=== PATIENT | female | born 1940 | race Caucasian/White ===

== ENCOUNTER → 2016-10-12 | Outpatient (CLI) | payer OTHER ==
[~2016-10-12] MED LIST: ALPR-411 PO; BUDE180I INH; CALCTAB5 PO; CETI10TA10 PO; DILT-115 PO; DILT-119 PO; FURO-85 PO; IPRASOL4 INH; LISI5TAB; MAGN400T5 PO; MELO7.5T5 PO; MISCTAB30; MONT1TAB3 PO; MULTTAB58 PO; ONDA8TAB6 PO; OXGN; PANT40TA PO; POTA10TA PO; PROC1TAB5 PO; RIVA1TAB4 PO
--- NOTE | 2016-10-12 13:13 | DIAGNOSTIC IMAGING REPORT ---
CHEST 2 VIEWS ROUTINE CLINICAL HISTORY: C34.90 Adenocarcinoma of lung, stage 4do at time of next appt in COMPARISON STUDY: 09/10/2015 FINDINGS: Improved left perihilar masslike and/or infiltrative changes. Maximum dimension is diminished from 7 cm to 3.5 cm. Central catheter remains in superior vena cava. Subtle increased density left base is unchanged in the prior study. IMPRESSION: Improved exam with the left perihilar/hilar density diminished from 7 cm to 3.5 cm maximum dimension Electronically signed by: Shahbaz Crouch M.D. 10/12/2016 1:11 PM Dictated Date/Time: 10/12/2016 1:09 PM
== END | disposition home or self-care (01) ==
LOC: C.RAD1850 12:45
PROVIDERS: ATTEND Internal Medicine Pulmonary Disease
DX: C34.90 Malignant neoplasm of unspecified part of unspecified bronchus or lung (principal)

== ENCOUNTER → 2017-03-02 | Outpatient (CLI) | payer OTHER ==
[2017-03-02 12:16] LABS: BASO % 0.5 %; BASO ABS # 0.05 K/uL (0-0.2); COMPLETE YES; EOS % 2.4 %; HEMATOCRIT 39.6 % (37-47); IG% 0.3 %; LYMPH % 19.1 %; LYMPH ABS # 1.98 K/uL (1.2-3.4); MEAN CELL VOLUME 88.4 fL (80-100); MEAN CORPUSCULAR HEMOGLOBIN 28.8 pg (25-34); MEAN CORPUSCULAR HGB CONC 32.6 g/dl (32-36); MEAN PLATELET VOLUME 9.9 fL (7.4-10.4); MONO % 10.3 %; NEUT % 67.4 %; PLATELET COUNT 259 K/uL (130-400); RED BLOOD COUNT 4.48 M/uL (4.2-5.4); WHITE BLOOD COUNT 10.34 K/uL (4.8-10.8)
[2017-03-02 12:35] LABS: ALT/SGPT 27 U/L (12-78); AST/SGOT 19 U/L (15-37); BLOOD UREA NITROGEN 10 mg/dl (7-18); BUN/CREATININE RATIO 16.8 (10-20); CALCIUM 9.4 mg/dl (8.5-10.1); CARBON DIOXIDE 30 mmol/L (21-32); CHLORIDE 106 mmol/L (98-107); CREATININE 0.59 mg/dl (0.60-1.20); GLUCOSE 71 mg/dl (70-99); POTASSIUM 3.6 mmol/L (3.5-5.1); SODIUM 141 mmol/L (136-145)
[2017-03-02 12:37] LABS: ALKALINE PHOSPHATASE 86 U/L (45-117)
--- NOTE | 2017-03-02 14:50 | DIAGNOSTIC IMAGING REPORT ---
(CHEST) THORAX WITH CLINICAL HISTORY: 76 years-old Female presenting with malignant neoplasm of the left upper lobe bronchus or lung. TECHNIQUE: Multidetector CT imaging of the chest was performed after the administration of intravenous contrast. IV contrast: 160 mL of Optiray 320. COMPARISON: 06/28/2016. CT DOSE: The estimated cumulative dose is 250.52 mGy.cm. 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 On soft tissue windows, left lower pole thyroid nodule now measures 13 mm, previously 11 mm. A smaller right thyroid lobe nodule is also noted. No axillary, supraclavicular, or mediastinal lymphadenopathy. Fullness at the left hilum secondary to left perihilar mass. Atherosclerosis of the aortic arch and origin of the left subclavian artery. Main pulmonary artery and right and left pulmonary arteries enlarged. The main pulmonary artery measures 3.2 cm in transverse dimension. Multichamber enlargement of the heart. Aortic arch and mitral annular calcification. Coronary artery calcification. Interval resolution of left pleural effusion. No pericardial effusion. Upper abdomen demonstrates well-defined lesion in the left hepatic lobe, indeterminate but likely hepatic cyst or hamartoma similar to prior exam. Cholecystectomy clips. Vague apparent hypoattenuation in the inferior aspect of the caudate, indeterminate (series 2 image 53). On lung windows, left paramediastinal consolidation in the upper lung, unchanged in distribution and likely postradiation change. Fullness at the left hilum is essentially unchanged from prior, consistent with known left perihilar mass. Subtle mosaic attenuation may suggest small airways disease. Scattered bilateral punctate nodules as on prior exam. Prominent subpleural 4 mm nodule in the right upper lobe (series 4 image 117). Previously this lesion was less solid and slightly smaller measuring only 3 mm. Calcified granuloma noted at the right apex. Airways patent. On bone windows, stable sclerotic lesion in an upper thoracic vertebral body. Multilevel degenerative changes of the thoracic spine. Superior endplate deformity of L1 partially visualized. IMPRESSION: 1. No significant change in appearance of the left perihilar consolidation/mass. Persistent left paramediastinal consolidative changes in keeping with postradiation fibrosis. 2. Interval resolution of left pleural effusion. 3. Scattered subcentimeter pulmonary nodules measuring up to 4 mm, the largest slightly increased in size from prior. 4. Apparent indeterminate hypoattenuation in the caudate. This is increased in size from prior CT of the abdomen and pelvis an concerning for disease progression. Electronically signed by: Neo John M.D. 03/02/2017 2:49 PM Dictated Date/Time: 03/02/2017 12:59 PM
== END | disposition home or self-care (01) ==
LOC: C.CTS 10:48
PROVIDERS: ATTEND Internal Medicine Hematology & Oncology
DX: C34.12 Malignant neoplasm of upper lobe, left bronchus or lung (principal); R91.8 Other nonspecific abnormal finding of lung field

== ENCOUNTER → 2017-03-03 | Outpatient (CLI) | payer OTHER ==
[2016-03-02 13:53] VITALS: BP 104/53; PULSE 72
[2017-03-03 13:04] VITALS: BP 107/68; PULSE 84; TEMP 36.8; O2SAT 96
--- NOTE | 2017-03-03 14:02 | Radiation Oncology Follow-Up ---
Radiation Oncology Follow-Up Date of Visit Mar 03, 2017. Reason For Visit Annual follow-up Radiation Completion Date Chest 07/22/15 Diagnosis (1) Lung cancer Status: Acute Onset Date: 04/10/2015 Location: metastasis to the right iliac bone Histology Subtype: adenocarcinoma Stage: IV Permanent Comment: DIAGNOSIS: Lung, IBETH, poorly differentiated adenocarcinoma, [id number] TREATMENT: Radiation therapy to the right iliac bone completed 05/20/2015 received 2500 cGy in 5 fractions at 500 cGy per fraction Status post completion of radiation therapy to the chest 07/22/2015 received 4000 cGy Last Edited By: Audrey Becker on Jul 29, 2015 13:13 History of Present Illness Ms. Rosario is a 76year old female with a long-standing history of asthma who recently underwent a routine chest x-ray on which revealed a 6.4 cm left perihilar mass concerning for malignancy. A CT Thorax was completed on 03/28/2015 but those records are not available for my review at the time of this consultation. The patient was then seen by Dr. Rosario who has followed the patient for several years and recommended a bronchoscopy for pathologic diagnosis. The patient underwent a bronchoscopy on 04/10/2015 which revealed "complete obstruction of left upper lobe bronchus with a friable endobronchial mass. Onsite cytology confirming left upper lobe mass is a non- small cell carcinoma. Metastatic carcinoma noted in station 7 lymph nodes." Biopsy of the left upper lobe mass revealed poorly differentiated adenocarcinoma. The biopsy of the station 7 lymph node was also positive as well. The R4 lymph node was negative for malignancy. Bronchial washings were also positive for lung cancer. The patient then had a PET/CT which was completed on 04/21/2015 which revealed: "1. Marked FDG avidity of the left upper lobe mass with associated occlusion of the left upper lobe bronchus. Mild postobstructive airspace opacity. This is consistent with the provided history of lung carcinoma. 2. Enlarged FDG avid prevascular, left supraclavicular and subcarinal lymph nodes consistent with melisa spread of disease. 3. Two FDG avid hepatic lesions suspicious for hepatic metastases. In addition, there is an FDG avid splenic lesion which is suspicious for splenic metastasis. 4. FDG avid lesion within the posterior medial aspect the right iliac bone highly suggestive of a skeletal metastasis." The patient was seen by Dr. Mcadams who recommended consideration of systemic therapy for her stage IV lung cancer. Given her discomfort from her right pelvic metastasis, Dr. Mcadams recommended consideration of palliative radiation therapy. She now presents for follow up evaluation. Overall, today she is doing okay. She does have some pain in her right hip region. She states that most of her discomfort is experienced when she lies down and can no longer sleep as comfortably as she did before. Otherwise, she states she has no other significant complaints at the moment. She received radiation therapy to the pelvis from 05/14/2015 to 05/20/2015. She had 5 fractions of therapy. The total dose of treatment was 2500 [address] She [address] a [address] scan of the chest on 06/05/2015. She had increased shortness of breath. She was found to have multiple pulmonary emboli. There was dilated central pulmonary arteries suggestive of pulmonary arterial hypertension. This was treated she's been followed closely by Dr. Mcadams. She has been receiving weekly Taxol carboplatin. She is tolerating this well. Dr. Mcadams has recommended the addition of radiation therapy with her chemotherapy for better respon Interim History She is continued to have close follow-up by medical oncology. She has now followed by Dr. Ruiz. She was having some problems with difficulty swallowing in June of last year. She had a barium swallow. She stated after having the study the difficulty resolved. She denies any change in her respiratory status. Her appetite is good she has gained weight. She denies any pain in the area of the right iliac bone. She had a chest x-ray in September. This showed improved exam with the left perihilar/hilar density diminished from 7 cm to 3.5 cm. She recently had a recheck CT of the chest yesterday. She'll be seeing Dr. Ruiz on the to further review this study. Allergies Coded Allergies: Amoxicillin (Verified Allergy, Intermediate, HIVES,RASH?, 10/14/15) Doxycycline (Verified Allergy, Intermediate, hives, 11/10/15) Penicillins (Verified Allergy, Intermediate, Hives / Rash, 10/14/15) Albuterol (Verified Allergy, Unknown, PT NOT AWARE OF ALLERGY -ON DR ROSARIO CHART, 10/14/15) Budesonide (Verified Allergy, Unknown, CHILLS,MUSCLE SPASMS, 10/14/15) Formoterol (Verified Allergy, Unknown, CHILLS,MUSCLE SPASMS, 10/14/15) Ipratropium (Verified Allergy, Unknown, PT NOT AWARE OF ALLERGY -ON DR ROSARIO CHART, 10/14/15) Sulfa Antibiotics (Verified Allergy, Unknown, UNKNOWN, 10/14/15) Tiotropium (Verified Allergy, Unknown, CHILLS,MUSCLE SPASMS, 10/14/15) Adhesives (Verified Adverse Reaction, Intermediate, TAPE-REDNESS, RASH, BURNT SKIN, 11/10/15) Statins (Verified Adverse Reaction, Intermediate, muscles tighten, 10/14/15 ) Clarithromycin (Verified Adverse Reaction, Mild, nausea, 10/14/15) Home Medications Scheduled Budesonide (Inhalation) (Pulmicort Flexhaler), 2 PUFFS INH BID Cetirizine Hcl (Zyrtec), 10 MG PO QPM Diltiazem Hcl Ext Rel (Tiazac), 240 MG PO DAILY Home O2 Therapy (Oxygen), 2 LITERS NA DAILY Misc Natural Products (Osteo Bi-Flex Joint Shiel), BID Montelukast Sodium (Singulair), 10 MG PO QPM Multiple Vitamin (Multivitamin), 1 TAB PO QPM Pantoprazole (Protonix), 40 MG PO QAM Rivaroxaban (Xarelto), 20 MG PO DAILY Scheduled PRN Alprazolam (Xanax), 1 TAB PO DAILY PRN for Anxiety Ipratropium-Albuterol (Duoneb), 1 TREATMENT INH Q4H PRN for PRN Meloxicam (Mobic), 15 MG PO DAILY PRN for PRN Ondansetron Hcl (Zofran), 8 MG PO TID PRN for Nausea Prochlorperazine Maleate (Compazine), 10 MG PO Q4H PRN for nausea Review of Systems Gastrointestinal: Symptoms: Nausea GI Comments: Waves of nausea;Takes zofran PRN; Oral: Symptoms: No Problems Other Oral Symptoms: Denies any dysphagia; Respiratory: Symptoms: Productive Cough Respiratory Comments: Hoarse voice Sputum Character: Clear sputum when cough productive;Makes her gag at times; Other Respiratory: Oxygen at bedtime Urinary: Symptoms: WNL Comments: Some urinary incontinence during nights; Skin: Symptoms: No Problems Physical Exam Vital Signs Date Time Temp Pulse Resp B/P (MAP) Pulse Ox O2 Delivery O2 Flow Rate FiO2 03/03/17 13:04 36.8 84 24 107/68 96 Pain: Pain Location: None Patient Pain Scale: 0 - 10 Initial Pain Intensity: 0.0 Fatigue: None General Appearance: no apparent distress Eyes: normal inspection, EOMI ENT: normal ENT inspection, hearing grossly normal Neck: no adenopathy, thyroid normal Respiratory/Chest: lungs clear, no respiratory distress, no accessory muscle use, + decreased breath sounds Cardiovascular: regular rate, rhythm, no gallop, no murmur Extremities: no pedal edema Neurologic/Psychiatric: no motor/sensory deficits, alert, normal mood/affect Skin: warm/dry Laboratory Studies Test 03/02/17 10:58 White Blood Count 10.34 K/uL (4.8-10.8) Red Blood Count 4.48 M/uL (4.2-5.4) Hemoglobin 12.9 g/dL (12.0-16.0) Hematocrit 39.6 % (37-47) Mean Corpuscular Volume 88.4 fL (80-100) Mean Corpuscular Hemoglobin 28.8 pg (25-34) Mean Corpuscular Hemoglobin Concent 32.6 g/dl (32-36) Platelet Count 259 K/uL (130-400) Mean Platelet Volume 9.9 fL (7.4-10.4) Neutrophils (%) (Auto) 67.4 % Lymphocytes (%) (Auto) 19.1 % Monocytes (%) (Auto) 10.3 % Eosinophils (%) (Auto) 2.4 % Basophils (%) (Auto) 0.5 % Neutrophils # (Auto) 6.96 K/uL (1.4-6.5) Lymphocytes # (Auto) 1.98 K/uL (1.2-3.4) Monocytes # (Auto) 1.07 K/uL (0.11-0.59) Eosinophils # (Auto) 0.25 K/uL (0-0.5) Basophils # (Auto) 0.05 K/uL (0-0.2) RDW Standard Deviation 44.9 fL (36.4-46.3) RDW Coefficient of Variation 13.9 % (11.5-14.5) Immature Granulocyte % (Auto) 0.3 % Immature Granulocyte # (Auto) 0.03 K/uL (0.00-0.02) Sodium Level 141 mmol/L (136-145) Potassium Level 3.6 mmol/L (3.5-5.1) Chloride Level 106 mmol/L (98-107) Carbon Dioxide Level 30 mmol/L (21-32) Anion Gap 5.0 mmol/L (3-11) Blood Urea Nitrogen 10 mg/dl (7-18) Creatinine 0.59 mg/dl (0.60-1.20) Estimated GFR () 101.7 Estimated GFR (Non- 87.8 BUN/Creatinine Ratio 16.8 (10-20) Random Glucose 71 mg/dl (70-99) Calcium Level 9.4 mg/dl (8.5-10.1) Total Bilirubin 0.4 mg/dl (0.2-1) Aspartate Amino Transferase (AST) 19 U/L (15-37) Alanine Aminotransferase (ALT) 27 U/L (12-78) Alkaline Phosphatase 86 U/L (45-117) Lactate Dehydrogenase 210 U/L (84-246) Total Protein 6.6 gm/dl (6.4-8.2) Albumin 3.3 gm/dl (3.4-5.0) Globulin 3.3 gm/dl (2.5-4.0) Albumin/Globulin Ratio 1.0 (0.9-2) Additional Studies Patient: LAXMI ROSARIO Address1: [address] [place] [address] Rec: [id number] Address2: Acct ID: [id number] [facility] Zip: [place] [address] Date: 1940 Sex: F Room/Bed: Ref Phy: Sury Abad M.D. SC: C.CTS Att Phy: Karlos Ruiz D.O. Report #: [id number] Roxane Phy: Sury Abad M.D. Test: CX Admit Phy: Junior Legal Secretary: QUOC Interpreting Phy: Neo John MD Diagnosis: LUNG CA Ordering Phy: Karlos Ruiz D.O. Service Date: 03/02/17 Admit Date: 03/02/17 MNE: [id number] CONF: DICTATED BY: Neo John MD]] CC: Karlos Ruiz D.O., Mary E., M.D. [facility]: [~ rep ct add3]] (CHEST) THORAX WITH CLINICAL HISTORY: 76 years-old Female presenting with malignant neoplasm of the left upper lobe bronchus or lung. TECHNIQUE: Multidetector CT imaging of the chest was performed after the administration of intravenous contrast. IV contrast: 160 mL of Optiray 320. COMPARISON: 06/28/2016. CT DOSE: The estimated cumulative dose is 250.52 mGy.cm. 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 On soft tissue windows, left lower pole thyroid nodule now measures 13 mm, previously 11 mm. A smaller right thyroid lobe nodule is also noted. No axillary, supraclavicular, or mediastinal lymphadenopathy. Fullness at the left hilum secondary to left perihilar mass. Atherosclerosis of the aortic arch and origin of the left subclavian artery. Main pulmonary artery and right and left pulmonary arteries enlarged. The main pulmonary artery measures 3.2 cm in transverse dimension. Multichamber enlargement of the heart. Aortic arch and mitral annular calcification. Coronary artery calcification. Interval resolution of left pleural effusion. No pericardial effusion. Upper abdomen demonstrates well-defined lesion in the left hepatic lobe, indeterminate but likely hepatic cyst or hamartoma similar to prior exam. Cholecystectomy clips. Vague apparent hypoattenuation in the inferior aspect of the caudate, indeterminate (series 2 image 53). On lung windows, left paramediastinal consolidation in the upper lung, unchanged in distribution and likely postradiation change. Fullness at the left hilum is essentially unchanged from prior, consistent with known left perihilar mass. Subtle mosaic attenuation may suggest small airways disease. Scattered bilateral punctate nodules as on prior exam. Prominent subpleural 4 mm nodule in the right upper lobe (series 4 image 117). Previously this lesion was less solid and slightly smaller measuring only 3 mm. Calcified granuloma noted at the right apex. Airways patent. On bone windows, stable sclerotic lesion in an upper thoracic vertebral body. Multilevel degenerative changes of the thoracic spine. Superior endplate deformity of L1 partially visualized. IMPRESSION: 1. No significant change in appearance of the left perihilar consolidation/mass. Persistent left paramediastinal consolidative changes in keeping with postradiation fibrosis. 2. Interval resolution of left pleural effusion. 3. Scattered subcentimeter pulmonary nodules measuring up to 4 mm, the largest slightly increased in size from prior. 4. Apparent indeterminate hypoattenuation in the caudate. This is increased in size from prior CT of the abdomen and pelvis an concerning for disease progression. Electronically signed by: Neo John M.D. 03/02/2017 2:49 PM Dictated Date/Time: 03/02/2017 12:59 PM Assessment & Plan We discussed the changes of the chest are stable. There is some changes that are noted in the caudate. She also did not have CT of the abdomen and pelvis. She is currently not having any pain in the right iliac area. We'll defer any further testing to Dr. Ruiz. She'll be seeing on March 11. We asked her to return to our office in 1 year. She will call if she has been questions or concerns in the interim. Total Time In Follow-Up I spent 20 minutes speaking to the patient performing examination. I spent 15 minutes reviewing information and completing this note. Copy To Karlos Ruiz D.O.; Sury Abad M.D. Problem Qualifiers (1) Lung cancer: Laterality: left Lung location: lower lobe of lung Qualified Codes: C34.32 - Malignant neoplasm of lower lobe, left bronchus or lung
== END | disposition home or self-care (01) ==
LOC: C.ONC 12:44
PROVIDERS: ATTEND Physician Assistant Medical
DX: Z08 Encounter for follow-up examination after completed treatment for malignant neoplasm (principal); Z92.3 Personal history of irradiation; Z85.118 Personal history of other malignant neoplasm of bronchus and lung

== ENCOUNTER → 2017-06-29 | Outpatient (CLI) | payer OTHER ==
[~2017-06-29] MED LIST changes: -CALCTAB5 PO; -DILT-119 PO; -FURO-85 PO; -LISI5TAB; -MAGN400T5 PO; -POTA10TA PO
[2017-06-29 13:44] LABS: ISTAT CREATININE 0.7 mg/dl (0.6-1.3); ISTAT HEMOGLOBIN 12.6 g/dl (12.0-16.0); ISTAT IONIZED CALCIUM 1.23 mmol/l (1.12-1.32)
--- NOTE | 2017-06-30 08:30 | DIAGNOSTIC IMAGING REPORT ---
(CHEST) THORAX WITH CT DOSE: 370.56 mGycm HISTORY: Lung carcinoma LUNG CA TECHNIQUE: Multiaxial CT images of the chest were performed following the intravenous administration of contrast. A dose lowering technique was utilized adhering to the principles of ALARA. COMPARISON: 03/02/2007 FINDINGS: Mild progression of the patient's left perihilar as well as left retrohilar fibrotic and atelectatic change. These changes appear to be on the basis of post therapeutic 3. Radiation fibrosis. Generalized ectasia of the thoracic aorta as well as pulmonary arterial vasculature. This is unaltered from the prior study. Thank you micronodularity of the right hemithorax is slightly increased in number. No nodule exceed 3 mm. No significant hilar or mediastinal adenopathy. The lung bases remain clear. Hypodensity in the caudate lobe of liver is nonprogressive. Several shotty axillary nodes are present which appear nonprogressive compared to the prior exam. IMPRESSION: 1. Mixed findings compared to the prior study. 2. Mildly progressive fibrotic and atelectatic change in a left hilar/perihilar distribution. 2. This appears to be secondary to slightly progressive post radiation change. 3. Slightly progressive parenchymal nodularity of the right hemithorax suspicious for slightly progressive metastatic change. 4. Stable hypodensity of the caudate lobe of the liver. The above report was generated using voice recognition software. It may contain grammatical, syntax or spelling errors. Electronically signed by: Shahbaz Crouch M.D. 06/29/2017 1:57 PM Dictated Date/Time: 06/29/2017 1:46 PM
== END | disposition home or self-care (01) ==
LOC: C.CTS 12:54
PROVIDERS: ATTEND Internal Medicine Hematology & Oncology
DX: C34.12 Malignant neoplasm of upper lobe, left bronchus or lung (principal)

== ENCOUNTER → 2017-07-18 | Outpatient (CLI) | payer OTHER ==
[2017-07-18 15:35] LABS: CHOLESTEROL/HDL RATIO 4.6
[2017-07-19 07:35] LABS: ESTIMATED AVERAGE GLUCOSE 111 mg/dl; HA1C FLAG Normal (Normal)
== END | disposition home or self-care (01) ==
LOC: C.LABSPEC 11:31
PROVIDERS: ATTEND Family Medicine
DX: E55.9 Vitamin D deficiency, unspecified (principal); E11.9 Type 2 diabetes mellitus without complications; E78.00 Pure hypercholesterolemia, unspecified

== ENCOUNTER → 2017-11-01 | Outpatient (CLI) | payer OTHER ==
[~2017-11-01] MED LIST changes: +ONDA-170 PO; -ONDA8TAB6 PO
--- NOTE | 2017-11-01 15:56 | DIAGNOSTIC IMAGING REPORT ---
CHEST 2 VIEWS ROUTINE HISTORY: C34.90 Adenocarcinoma of lung, stage 4J06.9 Acute upper respiratory infection. COMPARISON: Chest 10/12/2016. Chest CT 06/29/2017. FINDINGS: Right Port-A-Cath terminates in the SVC. The heart remains mildly enlarged. 3.5 cm left hilar/suprahilar irregular density remains unchanged. A few linear scarlike densities within the left upper lobe persist. There appears to be a new 6 mm nodular density within the left upper lobe. Mild diffuse interstitial thickening is likely chronic. No pleural effusions. No pneumothorax. Cholecystectomy. Mild superior endplate compression deformity at L1. This is likely old. IMPRESSION: 1. No change in the left hilar/suprahilar irregular density. 2. No new focal lung consolidations to suggest pneumonia. 2. A new 6 mm nodular density within the left upper lobe. This could be due to progressive scarring or a developing nodule. Electronically signed by: Jamaal Nance M.D. 11/01/2017 3:55 PM Dictated Date/Time: 11/01/2017 3:44 PM
== END | disposition home or self-care (01) ==
LOC: C.RAD1850 15:27
PROVIDERS: ATTEND Internal Medicine Pulmonary Disease
DX: C34.90 Malignant neoplasm of unspecified part of unspecified bronchus or lung (principal); J06.9 Acute upper respiratory infection, unspecified; R91.1 Solitary pulmonary nodule

== ENCOUNTER → 2018-01-06 | Outpatient (CLI) | payer OTHER ==
[~2018-01-06] MED LIST changes: +PROC10TA PO; -PROC1TAB5 PO
--- NOTE | 2018-01-06 13:48 | DIAGNOSTIC IMAGING REPORT ---
(CHEST) THORAX WITHOUT CT DOSE: 516.70 mGy.cm CLINICAL HISTORY: 77 years-old Female with R91.1 Lung noduleto be done in mid december with f/u appt. [id number]. Follow-up study in a patient with history of lung nodules . History of malignant neoplasm of the left upper lobe TECHNIQUE: Multiaxial CT images of the chest were performed without contrast. A dose lowering technique was utilized adhering to the principles of ALARA. COMPARISON: CT chest 06/29/2017, CT chest 03/02/2017. FINDINGS: Multiple nodular thyroid goiter with peripherally calcified nodule about the left thyroid lobe posteriorly measuring up to 1.3 cm. There is no suspicious adenopathy identified. Mildly prominent 9 x 1.4 cm precarinal lymph node on image 86 series 4 is unchanged. The heart is enlarged without pericardial effusion. Coronary arterial calcifications are noted. Moderate atherosclerosis of the aorta and proximal great vessels. Tortuosity of the descending thoracic aorta. Right internal jugular [id number] catheter terminates within the right atrium. Main pulmonary artery is dilated, 3.3 cm suggesting sequela of pulmonary arterial hypertension. Evaluation of the lungs is limited secondary to respiratory motion. Mild paraseptal bleb formation of the lung apices. No pneumothorax or pleural effusion. Chronic consolidation about the left perihilar distribution, anterior segment left upper lobe and superior segment left lower lobe appears unchanged with evidence of radiation fibrosis. Unchanged 5 mm groundglass density of the left lung apex. Unchanged subcentimeter nodules of the left upper lobe measuring up to 4 mm. Ill-defined groundglass opacities about the apical segment right upper lobe appear unchanged. Calcified granuloma the right lung apex. Central airways appear patent. Layering secretions are seen within the left mainstem bronchus.Calcified granuloma of the basal left lower lobe. Biapical pleural-parenchymal scarring. Prior cholecystectomy. No acute process of the imaged upper abdomen. Focal area of ill-defined low-attenuation of the caudate lobe redemonstrated. Soft tissues are within normal limits. The bones appear mildly demineralized. No suspicious lytic or blastic bony lesions identified to suggest metastasis. Multilevel endplate spurring and facet arthropathy. Sclerotic lesion involving the T4 vertebral body is unchanged, possibly reflecting a bone island, 11 mm. Loose bodies are noted within the left subscapularis recess measuring up to 9 mm IMPRESSION: 1. No acute process of the chest. 2. Unchanged appearing chronic consolidation/parenchymal scarring with radiation fibrosis about the left perihilar distribution, anterior segment left upper lobe and superior segment left lower lobe. 3. No pathologic adenopathy. 4. Biapical pleural-parenchymal scarring with scattered groundglass opacities of the upper lung zones appearing unchanged. Additionally, there are scattered solid pulmonary nodules within the lungs bilaterally measuring up to 5 mm which are also stable. 5. Ill-defined low attenuating hepatic lesion of the caudate lobe redemonstrated suspicious for metastasis. 6. Multinodular goiter. Electronically signed by: Andrae Murdock M.D. 01/06/2018 1:46 PM Dictated Date/Time: 01/06/2018 1:32 PM
== END | disposition home or self-care (01) ==
LOC: C.CTS 13:21
PROVIDERS: ATTEND Internal Medicine Pulmonary Disease
DX: R91.8 Other nonspecific abnormal finding of lung field (principal); J70.1 Chronic and other pulmonary manifestations due to radiation; J98.4 Other disorders of lung; K76.9 Liver disease, unspecified; E04.2 Nontoxic multinodular goiter; X39 Exposure to other forces of nature

== ENCOUNTER → 2018-03-23 | Outpatient (CLI) | payer OTHER ==
[~2018-03-23] MED LIST changes: +IPRA-64 INH; -IPRASOL4 INH; +METO25TA3 PO; +POTA10CA28 PO; +PRED20TA PO; +PSEU60TA80 PO
[2018-03-23 14:38] LABS: ALBUMIN 3.2 gm/dl (3.4-5.0); ALKALINE PHOSPHATASE 62 U/L (45-117); ALT/SGPT 22 U/L (12-78); AST/SGOT 13 U/L (15-37); BLOOD UREA NITROGEN 21 mg/dl (7-18); CALCIUM 8.4 mg/dl (8.5-10.1); CARBON DIOXIDE 31 mmol/L (21-32); CREATININE 0.79 mg/dl (0.60-1.20); GLUCOSE 124 mg/dl (70-99); HEMATOCRIT 33.2 % (37-47); HEMOGLOBIN 9.7 g/dL (12.0-16.0); MEAN CELL VOLUME 81.2 fL (80-100); MEAN CORPUSCULAR HEMOGLOBIN 23.7 pg (25-34); MEAN CORPUSCULAR HGB CONC 29.2 g/dl (32-36); MEAN PLATELET VOLUME 10.1 fL (7.4-10.4); PLATELET COUNT 271 K/uL (130-400); POTASSIUM 4.4 mmol/L (3.5-5.1); RED CELL DISTRIBUTION WIDTH CV 17.9 % (11.5-14.5); RED CELL DISTRIBUTION WIDTH SD 53.3 fL (36.4-46.3); SODIUM 139 mmol/L (136-145); TOTAL PROTEIN 6.1 gm/dl (6.4-8.2); WHITE BLOOD COUNT 10.47 K/uL (4.8-10.8)
[2018-03-23 14:55] LABS: BASO % 0.5 %; BASO ABS # 0.05 K/uL (0-0.2); EOS % 0.8 %; EOS ABS # 0.08 K/uL (0-0.5); IG# 0.04 K/uL (0.00-0.02); LYMPH % 8.5 %; LYMPH ABS # 0.89 K/uL (1.2-3.4); MONO % 2.7 %; MONO ABS # 0.28 K/uL (0.11-0.59); NEUT % 87.1 %; NEUT ABS # 9.13 K/uL (1.4-6.5)
== END | disposition home or self-care (01) ==
LOC: C.LABSPEC 13:59
PROVIDERS: ATTEND Internal Medicine Hematology & Oncology
DX: C34.12 Malignant neoplasm of upper lobe, left bronchus or lung (principal)

== ENCOUNTER → 2018-04-03 | Outpatient (CLI) | payer OTHER ==
[~2018-04-03] MED LIST changes: +CLC150 PO; +LSX20 PO
[2018-04-03 11:10] LABS: BASO % 0.1 %; BASO ABS # 0.01 K/uL (0-0.2); HEMATOCRIT 32.4 % (37-47); HEMOGLOBIN 9.5 g/dL (12.0-16.0); IG# 0.06 K/uL (0.00-0.02); LYMPH % 4.3 %; LYMPH ABS # 0.56 K/uL (1.2-3.4); MEAN CELL VOLUME 81.4 fL (80-100); MEAN CORPUSCULAR HEMOGLOBIN 23.9 pg (25-34); MEAN CORPUSCULAR HGB CONC 29.3 g/dl (32-36); MEAN PLATELET VOLUME 10.3 fL (7.4-10.4); MONO % 1.3 %; MONO ABS # 0.17 K/uL (0.11-0.59); NEUT % 93.8 %; PLATELET COUNT 257 K/uL (130-400); RED CELL DISTRIBUTION WIDTH CV 17.5 % (11.5-14.5); RED CELL DISTRIBUTION WIDTH SD 51.7 fL (36.4-46.3)
[2018-04-03 11:16] LABS: ALBUMIN 3.1 gm/dl (3.4-5.0); ALKALINE PHOSPHATASE 56 U/L (45-117); ALT/SGPT 21 U/L (12-78); AST/SGOT 12 U/L (15-37); BLOOD UREA NITROGEN 22 mg/dl (7-18); CALCIUM 8.9 mg/dl (8.5-10.1); CARBON DIOXIDE 30 mmol/L (21-32); CREATININE 0.71 mg/dl (0.60-1.20); GLUCOSE 214 mg/dl (70-99); SODIUM 140 mmol/L (136-145); TOTAL PROTEIN 6.1 gm/dl (6.4-8.2)
== END | disposition home or self-care (01) ==
LOC: C.LABSPEC 09:37
PROVIDERS: ATTEND Internal Medicine Hematology & Oncology
DX: C34.12 Malignant neoplasm of upper lobe, left bronchus or lung (principal)

== ENCOUNTER 2018-04-08 12:27 | Inpatient (IN) | payer OTHER ==
[~2018-04-08] VITALS: Ht 149.9 cm; Wt 78.3 kg
[~2018-04-08 12:27] MED LIST changes: -CLC150 PO; -LSX20 PO
[2018-04-08] MEDS ORDERED: SODIUM CHLORIDE 0.9% 1000ML 500 ML IV ONE (12:44)
[2018-04-08] MEDS ORDERED: ACETAMINOPHEN 500 MG TAB PO STA (12:44)
[2018-04-08] MEDS ORDERED: CEFEPIME IV 2,000 MG in DEXTROSE 5% 100ML 100 ML IV ONE (12:45)
[2018-04-08] MEDS ORDERED: ACETAMINOPHEN IV 1,000 MG in EMPTY BAG 0 ML IV STA (13:03)
[2018-04-08] MEDS ORDERED: ACETAMINOPHEN 1000 MG/100 ML IV IV ONE (13:15)
[2018-04-08] MEDS ORDERED: DILTIAZEM BOLUS / DRIP IV STA (13:16)
[2018-04-08] MEDS ORDERED: DILTIAZEM BOLUS FROM BAG IV ONE (13:30)
[2018-04-08] MEDS: DILTIAZEM HCL INJ 125 MG in DEXTROSE 5% 100ML IV PRN ×3 (13:51→14:59)
[2018-04-08 14:05] LABS: PTT PATIENT 30.1 SECONDS (21.0-31.0)
[2018-04-08 14:08] LABS: HEMATOCRIT 26.9 % (37-47); HEMOGLOBIN 8.1 g/dL (12.0-16.0); MEAN CELL VOLUME 79.6 fL (80-100); MEAN CORPUSCULAR HGB CONC 30.1 g/dl (32-36); MEAN PLATELET VOLUME 10.1 fL (7.4-10.4); PLATELET COUNT 143 K/uL (130-400); RED CELL DISTRIBUTION WIDTH CV 17.3 % (11.5-14.5); RED CELL DISTRIBUTION WIDTH SD 49.9 fL (36.4-46.3); WHITE BLOOD COUNT 1.39 K/uL (4.8-10.8)
[2018-04-08 14:14] LABS: BASO % 1.4 %; BASO ABS # 0.02 K/uL (0-0.2); EOS % 3.6 %; EOS ABS # 0.05 K/uL (0-0.5); LYMPH % 39.6 %; LYMPH ABS # 0.55 K/uL (1.2-3.4); MONO % 7.9 %; MONO ABS # 0.11 K/uL (0.11-0.59); NEUT % 47.5 %; NEUT ABS # 0.66 K/uL (1.4-6.5)
[2018-04-08 14:22] LABS: ALBUMIN 2.1 gm/dl (3.4-5.0); CALCIUM 8.1 mg/dl (8.5-10.1); CREATININE 0.51 mg/dl (0.60-1.20); TOTAL PROTEIN 5.7 gm/dl (6.4-8.2)
[2018-04-08] MEDS ORDERED: MAGNESIUM SULFATE 1GM / D5W 1 GM BAG IV STA (14:25)
--- NOTE | 2018-04-08 14:43 | DIAGNOSTIC IMAGING REPORT ---
CHEST ONE VIEW PORTABLE CLINICAL HISTORY: 77 years-old Female presenting with Sepsis. TECHNIQUE: Portable upright AP view of the chest was obtained. COMPARISON: 11/01/[address] from 01/06/2018. FINDINGS: Right subclavian vein Mediport terminates in the lower SVC. Atherosclerosis of the aortic arch. Cardiac silhouette enlarged. Massive prominence. Left upper lobe masslike consolidation similar to prior exam. Additional nodular opacity more peripherally is similar also. No new focal opacity. No large effusion or pneumothorax. Osseous structures normal. Upper abdomen normal. IMPRESSION: 1. Unchanged left upper lung masslike/nodular infiltrates. No new focal infiltrate to suggest superimposed acute cardiopulmonary disease. 2. Cardiomegaly with mild volume overload. Electronically signed by: Neo John M.D. 04/08/2018 2:41 PM Dictated Date/Time: 04/08/2018 2:38 PM
[2018-04-08] MEDS ORDERED: ALBUT/IPRATROP 3MG/0.5MG NEB 3 ML VIAL INH PRN (15:45)
[2018-04-08] MEDS ORDERED: CEFEPIME IV 1,000 MG in DEXTROSE 5% 100ML 100 ML IV SCH (15:45)
[2018-04-08] MEDS ORDERED: ALPRAZOLAM 0.5 MG TAB PO PRN (15:45)
[2018-04-08] MEDS ORDERED: DILTIAZEM SR 60 MG CAP PO SCH (16:15)
[2018-04-08] MEDS ORDERED: VANCOMYCIN CONSULT ACTIVE PRN (16:15)
--- NOTE | 2018-04-08 16:29 | EMERGENCY ROOM VISIT NOTE ---
History Report prepared by Dana: Jacquelin Moore Under the Supervision of: Dr. Greg Simons M.D. 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 She states she is going through chemo for a spot on her liver and after her treatment 8 days ago, her right leg became red and swollen. She also has a loss of appetite and notes she has not taken her medications for the past 2 days because "she does not feel like it." Pt also reports she is very weak and movement worsens her leg pain. She notes she has her chemo every Tuesday, and this is the 2nd treatment she has had. Her oncologist is Dr. Ruiz, [facility] and Dr. Ibrahim, [facility] is her door technician. She regularly takes Xarelto. 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 A total of 10 systems reviewed and were otherwise negative. Past Medical & Surgical Medical Problems: (1) No significant past medical history Family History Omitted secondary to age Social History Smoking Status: Unknown if Ever Smoked Smokeless Tobacco Use: No Housing Status: lives with family Occupation Status: retired Current/Historical Medications Scheduled Budesonide (Inhalation) (Pulmicort Flexhaler), 2 PUFFS INH BID Cetirizine Hcl (Zyrtec), 10 MG PO QPM Diltiazem Hcl Ext Rel (Tiazac), 240 MG PO DAILY Home O2 Therapy (Oxygen), 2 LITERS NA DAILY Metoprolol Succ (Toprol Xl) (Toprol-Xl), 25 MG PO DAILY Misc Natural Products (Osteo Bi-Flex Joint Shiel), BID Montelukast Sodium (Singulair), 10 MG PO QPM Multiple Vitamin (Multivitamin), 1 TAB PO QPM Pantoprazole (Protonix), 40 MG PO QAM Potassium Chloride (Micro-K Ext Rel), 10 MEQ PO DAILY Prednisone (Prednisone), 1 TAB PO BID Pseudoephedrine-Guaifenesin (Mucinex D), 1 TAB PO BID Rivaroxaban (Xarelto), 20 MG PO DAILY Scheduled PRN Alprazolam (Xanax), 1 TAB PO DAILY PRN for Anxiety Ipratropium-Albuterol (Duoneb), 1 TREATMENT INH Q4H PRN for PRN Meloxicam (Mobic), 15 MG PO DAILY PRN for PRN Ondansetron Hcl (Zofran), 8 MG PO TID PRN for Nausea Prochlorperazine Maleate (Compazine), 10 MG PO Q4H PRN for nausea Allergies Coded Allergies: Amoxicillin (Verified Allergy, Intermediate, HIVES,RASH?, 10/14/15) Doxycycline (Verified Allergy, Intermediate, hives, 11/10/15) Penicillins (Verified Allergy, Intermediate, Hives / Rash, 10/14/15) Albuterol (Verified Allergy, Unknown, PT NOT AWARE OF ALLERGY -ON DR ROSARIO CHART, 10/14/15) Budesonide (Verified Allergy, Unknown, CHILLS,MUSCLE SPASMS, 10/14/15) Formoterol (Verified Allergy, Unknown, CHILLS,MUSCLE SPASMS, 10/14/15) Ipratropium (Verified Allergy, Unknown, PT NOT AWARE OF ALLERGY -ON DR ROSARIO CHART, 10/14/15) Sulfa Antibiotics (Verified Allergy, Unknown, UNKNOWN, 10/14/15) Tiotropium (Verified Allergy, Unknown, CHILLS,MUSCLE SPASMS, 10/14/15) Adhesives (Verified Adverse Reaction, Intermediate, TAPE-REDNESS, RASH, BURNT SKIN, 11/10/15) Statins (Verified Adverse Reaction, Intermediate, muscles tighten, 10/14/15 ) Clarithromycin (Verified Adverse Reaction, Mild, nausea, 10/14/15) Physical Exam Vital Signs Date Time Temp Pulse Resp B/P (MAP) Pulse Ox O2 Delivery O2 Flow Rate FiO2 04/08/18 17:31 96 20 120/74 98 Nasal Cannula 2.0 04/08/18 17:04 88 22 114/62 100 Nasal Cannula 2.0 04/08/18 16:10 94 20 116/72 100 Nasal Cannula 2.0 04/08/18 15:28 104 30 104/65 99 Nasal Cannula 2.0 04/08/18 14:55 117 30 114/83 99 Nasal Cannula 2.0 04/08/18 14:30 120 24 113/71 100 Nasal Cannula 2.0 04/08/18 14:15 114 22 119/73 100 Nasal Cannula 2.0 04/08/18 13:49 145 24 145/92 95 Nasal Cannula 2.0 04/08/18 13:12 98 Nasal Cannula 3.0 04/08/18 13:12 98 Nasal Cannula 2.0 04/08/18 13:07 139 04/08/18 12:30 36.7 126 16 111/59 94 Room Air Physical Exam GENERAL: Patient is in no acute distress. HEENT: No acute trauma, normocephalic atraumatic, mucous membranes moist, no nasal congestion, no scleral icterus. NECK: No stridor, no adenopathy, no meningismus, trachea is midline. LUNGS: Significantly diminished breath sounds on the left. Right lung clear. No wheezing or rhonchi. HEART: Tachycardic and irregular. No murmurs. ABDOMEN: Soft, nontender, bowel sounds positive, no hernias, no peritonitis. EXTREMITIES: Edema to both LE. Erythema involving the right foot and right leg extending proximally along the medial right thigh. No drainage NEUROLOGIC: Oriented x 3, no acute motor or sensory deficits, no focal weakness. SKIN: No rash, no jaundice, no diaphoresis. Medical Decision & Procedures ER Provider Diagnostic Interpretation: Radiology results as stated below per my review and radiologist interpretation: CHEST ONE VIEW PORTABLE CLINICAL HISTORY: 77 years-old Female presenting with Sepsis. TECHNIQUE: Portable upright AP view of the chest was obtained. COMPARISON: 11/01/[address] from 01/06/2018. FINDINGS: Right subclavian vein Mediport terminates in the lower SVC. Atherosclerosis of the aortic arch. Cardiac silhouette enlarged. Massive prominence. Left upper lobe masslike consolidation similar to prior exam. Additional nodular opacity more peripherally is similar also. No new focal opacity. No large effusion or pneumothorax. Osseous structures normal. Upper abdomen normal. IMPRESSION: 1. Unchanged left upper lung masslike/nodular infiltrates. No new focal infiltrate to suggest superimposed acute cardiopulmonary disease. 2. Cardiomegaly with mild volume overload. Electronically signed by: Neo John M.D. 04/08/2018 2:41 PM Laboratory Results 04/08/18 13:35 Red Blood Count 3.38, Mean Corpuscular Volume 79.6, Mean Corpuscular Hemoglobin 24.0, Mean Corpuscular Hemoglobin Concent 30.1, Mean Platelet Volume 10.1, Neutrophils (%) (Auto) 47.5, Lymphocytes (%) (Auto) 39.6, Monocytes (%) (Auto) 7.9, Eosinophils (%) (Auto) 3.6, Basophils (%) (Auto) 1.4, Neutrophils # (Auto) 0.66, Lymphocytes # (Auto) 0.55, Monocytes # (Auto) 0.11, Eosinophils # (Auto) 0.05, Basophils # (Auto) 0.02 04/08/18 13:35 Test 04/08/18 13:35 04/08/18 13:49 White Blood Count 1.39 K/uL (4.8-10.8) Red Blood Count 3.38 M/uL (4.2-5.4) Hemoglobin 8.1 g/dL (12.0-16.0) Hematocrit 26.9 % (37-47) Mean Corpuscular Volume 79.6 fL (80-100) Mean Corpuscular Hemoglobin 24.0 pg (25-34) Mean Corpuscular Hemoglobin Concent 30.1 g/dl (32-36) Platelet Count 143 K/uL (130-400) Mean Platelet Volume 10.1 fL (7.4-10.4) Neutrophils (%) (Auto) 47.5 % Lymphocytes (%) (Auto) 39.6 % Monocytes (%) (Auto) 7.9 % Eosinophils (%) (Auto) 3.6 % Basophils (%) (Auto) 1.4 % Neutrophils # (Auto) 0.66 K/uL (1.4-6.5) Lymphocytes # (Auto) 0.55 K/uL (1.2-3.4) Monocytes # (Auto) 0.11 K/uL (0.11-0.59) Eosinophils # (Auto) 0.05 K/uL (0-0.5) Basophils # (Auto) 0.02 K/uL (0-0.2) RDW Standard Deviation 49.9 fL (36.4-46.3) RDW Coefficient of Variation 17.3 % (11.5-14.5) Immature Granulocyte % (Auto) 0.0 % Immature Granulocyte # (Auto) 0.00 K/uL (0.00-0.02) Large Platelets 1+ Giant Platelets 1+ Hypochromasia PRESENT Anisocytosis PRESENT Prothrombin Time 10.8 SECONDS (9.0-12.0) Prothromb Time International Ratio 1.0 (0.9-1.1) Activated Partial Thromboplast Time 30.1 SECONDS (21.0-31.0) Partial Thromboplastin Ratio 1.2 Anion Gap 11.0 mmol/L (3-11) Est Creatinine Clear Calc Drug Dose 81.8 ml/min Estimated GFR () 106.0 Estimated GFR (Non- 91.5 BUN/Creatinine Ratio 22.5 (10-20) Calcium Level 8.1 mg/dl (8.5-10.1) Magnesium Level 1.2 mg/dl (1.8-2.4) Total Bilirubin 1.8 mg/dl (0.2-1) Aspartate Amino Transf (AST/SGOT) 16 U/L (15-37) Alanine Aminotransferase (ALT/SGPT) 18 U/L (12-78) Alkaline Phosphatase 78 U/L (45-117) Troponin I 0.118 ng/ml (0-0.045) Total Protein 5.7 gm/dl (6.4-8.2) Albumin 2.1 gm/dl (3.4-5.0) Globulin 3.6 gm/dl (2.5-4.0) Albumin/Globulin Ratio 0.6 (0.9-2) Bedside Lactic Acid Venous 1.66 mmol/L (0.90-1.70) Laboratory results reviewed by me. Medications Administered Medications (Trade) Dose Ordered Sig/Olga Route Start Time Stop Time Status Last Admin Dose Admin Sodium Chloride 500 ml @ 999 mls/hr Q31M ONCE IV 04/08/18 12:44 04/08/18 13:14 DC 04/08/18 13:19 999 MLS/HR Cefepime HCl 2000 mg/Dextrose 112.5 ml @ 225 mls/hr NOW ONCE IV 04/08/18 12:45 04/08/18 13:14 DC 04/08/18 13:42 225 MLS/HR Acetaminophen (Ofirmev Iv) 1,000 mg STK-MED ONCE IV 04/08/18 13:15 04/08/18 13:16 DC 04/08/18 13:19 1,000 MG Diltiazem HCl (Cardizem Bolus From Bag) 10 mg ONE ONCE IV 04/08/18 13:30 04/08/18 13:31 DC 04/08/18 13:30 10 MG Diltiazem HCl 125 mg/Dextrose 125 ml @ 0 mls/hr Q0M PRN IV 04/08/18 13:30 05/08/18 13:29 04/08/18 14:59 15 MLS/HR Magnesium Sulfate (Magnesium Sulfate 1gm / D5W) 2 gm NOW STAT IV 04/08/18 14:25 04/08/18 14:26 DC 04/08/18 14:39 2 GM Potassium Chloride 100 ml @ 100 mls/hr TODAY@1700,1800,1900 IV 04/08/18 17:00 04/08/18 23:59 04/08/18 17:04 100 MLS/HR Diltiazem HCl (Cardizem Sr) 60 mg TODAY@1615 PO 04/08/18 16:15 04/08/18 23:59 04/08/18 17:30 60 MG Metoprolol Tartrate (Lopressor Tab) 25 mg TODAY@1730 PO 04/08/18 17:30 04/08/18 23:59 04/08/18 17:30 25 MG Vancomycin HCl 2000 mg/Sodium Chloride 540 ml @ 200 mls/hr TODAY@1700 IV 04/08/18 17:00 04/08/18 23:59 04/08/18 17:26 200 MLS/HR ECG Per My Interpretation Indication: other (fever) Rate (beats per minute): 141 Rhythm: atrial fibrillation Findings: other (old septal infarct and LVH, no ST elevation) ED Course 1237: The patient was evaluated in room C1. A complete history and physical exam was performed. 1244: Ordered Tylenol Tab 100 mg PO, Sodium Chloride 500 ml @ 999 mls/hr IV 1245: Ordered Cefepime HCl 2000 mg/Dextrose 112.5 ml @ 225 mls/hr IV 1315: Ordered Acetaminophen 1000 mg IV 1320: Ordered Cardizem Bolus From Bag 10 mg IV 1425: Ordered Magnesium Sulfate 2 gm IV 1438: I checked on the patient at this time. I discussed her results with her. 1530: Discussed the patient's case with Dr. Carty [facility] Hospitalist. The patient will be evaluated for further management. Medical Decision Differential diagnosis: Etiologies such as cellulitis, rapid Afib, dehydration, electrolyte imbalance, bacteremia, sepsis, neutropenia, as well as others were entertained. Patient has a low white count, she is neutropenic. The hemoglobin is also low in the 8 range. These changes are likely from her chemotherapy. Platelet count is normal. Potassium slightly low, no kidney failure. Magnesium quite low at 1.2. No hepatitis. EKG shows a rapid A. fib, no acute ischemia. Cardiac enzyme testing 1 is elevated consistent with cardiac injury or strain. Chest film does not show an obvious pneumonia, some chronic findings were seen. Lactic acid level is not elevated making severe sepsis less likely. Blood cultures are pending. The patient was aggressively managed. She received a bolus of IV diltiazem and then was placed on a diltiazem drip. This did help control her heart rate. She received IV magnesium. She was given IV saline, she received IV cefepime. She received oral Tylenol. Patient is improved since being treated in the ED. She requires a hospital stay given all her findings. Certainly, sepsis is a concern especially with her neutropenia. I did speak to the patient and her family, I spoke with the case management. The on-call hospitalist was consulted. Medication Reconcilliation Current Medication List: was personally reviewed by me Blood Pressure Screening Patient's blood pressure: Normal blood pressure Consults Time Called: 1425 Consulting Physician: Dr. Carty [facility] Hospitalist Returned Call: 1530 Discussed the patient's case with Dr. Carty [facility] Hospitalist. The patient will be evaluated for further management. Impression Primary Impression: Cellulitis of right leg Additional Impressions: Neutropenia Hypomagnesemia Rapid atrial fibrillation Anemia Elevated troponin Critical Care I have personally spent greater than 45 minutes of critical care time in the direct management of this patient. This includes bedside care, interpretation of diagnostic studies, and testing, discussion with consultants, patient, and family members, and other required patient management activities. This 45 minutes is in excess of all separately billable procedures. Scribe Attestation The scribe's documentation has been prepared under my direction and personally reviewed by me in its entirety. I confirm that the note above accurately reflects all work, treatment, procedures, and medical decision making performed by me. Departure Information Dispostion Being Evaluated By Hospitalist (Dr. Carty, [facility] Hospitalist) Referrals Sury Abad M.D. (PCP) Patient Instructions My [facility] Problem Qualifiers
--- NOTE | 2018-04-08 16:59 | History and Physical ---
History & Physical Date & Time of Service: Apr 08, 2018 at 16:18 Chief Complaint: Fever, Can't Eat/Drink, Red Sore R Leg Primary Care Physician: Sury Abad M.D. History of Present Illness Source: patient, hospital records, other 77 y/o F Hx AF, PE, DM II, asthma, HTN, HPL, anxiety, GERD, Metastatic lung CA diagnosed 2014. Presents with fever and pain and inflammation of the RLE. She has fevers for 3 days. She also states she has felt too ill to take her medications, although she does not provide any specific symptoms. She denies nausea, vomiting, diarrhea or dysuria. She denies SOB above baseline or a productive cough and denies any CP. On arrival to the ER her HR was 140. Initial labs are notable for neutropenia, worsening anemia, hypokalemia, hypomagnesemia, protein malnutrition and an elevated troponin. She recently commenced a new chemotherapy regimen. Past Medical/Surgical History 1) Poorly differentiated Adenocarcinoma IBETH. Diagnosed 2014. Initially treated with Carboplatinum and Taxol. Mets to bone, liver, spleen. recently evaluated for radiation to a pelvic lesion which has caused considerable pain. 2) Pancytopenia 3) Chronic AF 4) HTN 5) HPL 6) Osteoporosis 7) Asthma 8) GERD 9) DM II 10) Anxiety disorder Family History Omitted secondary to age Social History Does not smoke or drink Smoking Status: Former Smoker Immunizations History of Influenza Vaccine: Yes History of Tetanus Vaccine?: No History of Pneumococcal: Yes History of Hepatitis B Vaccine: No Allergies Coded Allergies: Amoxicillin (Verified Allergy, Intermediate, HIVES,RASH?, 10/14/15) Doxycycline (Verified Allergy, Intermediate, hives, 11/10/15) Penicillins (Verified Allergy, Intermediate, Hives / Rash, 10/14/15) Albuterol (Verified Allergy, Unknown, PT NOT AWARE OF ALLERGY -ON DR ROSARIO CHART, 10/14/15) Budesonide (Verified Allergy, Unknown, CHILLS,MUSCLE SPASMS, 10/14/15) Formoterol (Verified Allergy, Unknown, CHILLS,MUSCLE SPASMS, 10/14/15) Ipratropium (Verified Allergy, Unknown, PT NOT AWARE OF ALLERGY -ON DR ROSARIO CHART, 10/14/15) Sulfa Antibiotics (Verified Allergy, Unknown, UNKNOWN, 10/14/15) Tiotropium (Verified Allergy, Unknown, CHILLS,MUSCLE SPASMS, 10/14/15) Adhesives (Verified Adverse Reaction, Intermediate, TAPE-REDNESS, RASH, BURNT SKIN, 11/10/15) Statins (Verified Adverse Reaction, Intermediate, muscles tighten, 10/14/15 ) Clarithromycin (Verified Adverse Reaction, Mild, nausea, 10/14/15) Home Medications Scheduled Budesonide (Inhalation) (Pulmicort Flexhaler), 2 PUFFS INH BID Cetirizine Hcl (Zyrtec), 10 MG PO QPM Diltiazem Hcl Ext Rel (Tiazac), 240 MG PO DAILY Home O2 Therapy (Oxygen), 2 LITERS NA DAILY Metoprolol Succ (Toprol Xl) (Toprol-Xl), 25 MG PO DAILY Misc Natural Products (Osteo Bi-Flex Joint Shiel), BID Montelukast Sodium (Singulair), 10 MG PO QPM Multiple Vitamin (Multivitamin), 1 TAB PO QPM Pantoprazole (Protonix), 40 MG PO QAM Potassium Chloride (Micro-K Ext Rel), 10 MEQ PO DAILY Prednisone (Prednisone), 1 TAB PO BID Pseudoephedrine-Guaifenesin (Mucinex D), 1 TAB PO BID Rivaroxaban (Xarelto), 20 MG PO DAILY Scheduled PRN Alprazolam (Xanax), 1 TAB PO DAILY PRN for Anxiety Ipratropium-Albuterol (Duoneb), 1 TREATMENT INH Q4H PRN for PRN Meloxicam (Mobic), 15 MG PO DAILY PRN for PRN Ondansetron Hcl (Zofran), 8 MG PO TID PRN for Nausea Prochlorperazine Maleate (Compazine), 10 MG PO Q4H PRN for nausea Review of Systems Constitutional: + fever, + weakness, + fatigue Eyes: No worsening of vision, No eye pain ENT: No hearing loss, No unusual epistaxis, No nasal symptoms Respiratory: No cough, No sputum, No wheezing Cardiovascular: No chest pain, No orthopnea, No PND Abdomen: + problem reported (very poor appetite and intake ), No pain, No nausea, No vomiting Genitourinary - Female: No dysuria, No urinary frequency Neurologic: + weakness, No memory loss, No paralysis Psychiatric: + depression symptoms Endocrine: + fatigue Hematologic / Lymphatic: No abnormal bleeding/bruising Integumentary: + rash (RLE inflammation as above) Physical Exam Vital Signs Date Time Temp Pulse Resp B/P (MAP) Pulse Ox O2 Delivery O2 Flow Rate FiO2 04/08/18 15:28 104 30 104/65 99 Nasal Cannula 2.0 04/08/18 14:55 117 30 114/83 99 Nasal Cannula 2.0 04/08/18 14:30 120 24 113/71 100 Nasal Cannula 2.0 04/08/18 14:15 114 22 119/73 100 Nasal Cannula 2.0 04/08/18 13:49 145 24 145/92 95 Nasal Cannula 2.0 04/08/18 13:12 98 Nasal Cannula 3.0 04/08/18 13:12 98 Nasal Cannula 2.0 04/08/18 13:07 139 04/08/18 12:30 36.7 126 16 111/59 94 Room Air General Appearance: + pertinent finding (Pale, elderly, female - lethargic, no distress ) Head: normocephalic Eyes: normal inspection ENT: normal ENT inspection, pharynx normal Neck: supple, no JVD Respiratory/Chest: chest non-tender, lungs clear, normal breath sounds Cardiovascular: no murmur, + tachycardia, + irregularly irregular Abdomen/GI: normal bowel sounds, non tender, soft Back: normal inspection, no CVA tenderness Extremities/Musculoskelatal: + pertinent finding (BL edema 3+ - Erythema and warmth of RLE from foot to upper Vivas) 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, no motor/sensory deficits, alert, oriented x 3 Skin: + pertinent finding (RLE cellulitis as above) Diagnostics Laboratory Results Results Past 24 Hours Test 04/08/18 13:35 04/08/18 13:49 Range/Units White Blood Count 1.39 4.8-10.8 K/uL Red Blood Count 3.38 4.2-5.4 M/uL Hemoglobin 8.1 12.0-16.0 g/dL Hematocrit 26.9 37-47 % Mean Corpuscular Volume 79.6 80-100 fL Mean Corpuscular Hemoglobin 24.0 25-34 pg Mean Corpuscular Hemoglobin Concent 30.1 32-36 g/dl Platelet Count 143 130-400 K/uL Mean Platelet Volume 10.1 7.4-10.4 fL Neutrophils (%) (Auto) 47.5 % Lymphocytes (%) (Auto) 39.6 % Monocytes (%) (Auto) 7.9 % Eosinophils (%) (Auto) 3.6 % Basophils (%) (Auto) 1.4 % Neutrophils # (Auto) 0.66 1.4-6.5 K/uL Lymphocytes # (Auto) 0.55 1.2-3.4 K/uL Monocytes # (Auto) 0.11 0.11-0.59 K/uL Eosinophils # (Auto) 0.05 0-0.5 K/uL Basophils # (Auto) 0.02 0-0.2 K/uL RDW Standard Deviation 49.9 36.4-46.3 fL RDW Coefficient of Variation 17.3 11.5-14.5 % Immature Granulocyte % (Auto) 0.0 % Immature Granulocyte # (Auto) 0.00 0.00-0.02 K/uL Large Platelets 1+ Giant Platelets 1+ Hypochromasia PRESENT Anisocytosis PRESENT Prothrombin Time 10.8 9.0-12.0 SECONDS Prothromb Time International Ratio 1.0 0.9-1.1 Activated Partial Thromboplast Time 30.1 21.0-31.0 SECONDS Partial Thromboplastin Ratio 1.2 Sodium Level 135 136-145 mmol/L Potassium Level 3.0 3.5-5.1 mmol/L Chloride Level 99 98-107 mmol/L Carbon Dioxide Level 25 21-32 mmol/L Anion Gap 11.0 3-11 mmol/L Blood Urea Nitrogen 12 7-18 mg/dl Creatinine 0.51 0.60-1.20 mg/dl Est Creatinine Clear Calc Drug Dose 81.8 ml/min Estimated GFR () 106.0 Estimated GFR (Non- 91.5 BUN/Creatinine Ratio 22.5 10-20 Random Glucose 76 70-99 mg/dl Calcium Level 8.1 8.5-10.1 mg/dl Magnesium Level 1.2 1.8-2.4 mg/dl Total Bilirubin 1.8 0.2-1 mg/dl Aspartate Amino Transf (AST/SGOT) 16 15-37 U/L Alanine Aminotransferase (ALT/SGPT) 18 12-78 U/L Alkaline Phosphatase 78 45-117 U/L Troponin I 0.118 0-0.045 ng/ml Total Protein 5.7 6.4-8.2 gm/dl Albumin 2.1 3.4-5.0 gm/dl Globulin 3.6 2.5-4.0 gm/dl Albumin/Globulin Ratio 0.6 0.9-2 Bedside Lactic Acid Venous 1.66 0.90-1.70 mmol/L Microbiology Results 04/08/18 Blood Culture, Received Pending 04/08/18 Blood Culture, Received Pending EKG AF/RVR Impression Assessment and Plan 77 y/o F Hx AF, PE, DM II, asthma, HTN, HPL, anxiety, GERD, Metastatic lung CA diagnosed 2014. Presents with fever and pain and inflammation of the RLE. She has fevers for 3 days. She also states she has felt too ill to take her medications, although she does not provide any specific symptoms. She denies nausea, vomiting, diarrhea or dysuria. She denies SOB above baseline or a productive cough and denies any CP. On arrival to the ER her HR was 140. Initial labs are notable for neutropenia, worsening anemia, hypokalemia, hypomagnesemia, protein malnutrition and an elevated troponin. She recently commenced a new chemotherapy regimen. 1) Fever - neutropenia and cellulitis of RLE - she is placed on Cefepime and Vanc pending culture results. She is placed on neutropenic precautions and the affected area has been delineated. Regarding her neutropenia, we would contact her oncologist to determine of she requires Neupogen. 2) AF - RVR - likely due to fever and medical noncompliance. She was placed on a Cardizem drip at the time of admission. We will change this to PO and provide her daily B debora as well. She is anticoagulated with Xarelto which we have held due to anemia. 3) Hypokalemia, hypomagnesemia. Replacement in process. 4) Anemia - microcytic - worsening - may be due to chemo or blood loss - FOB requested - Xarelto held pending result. 5) Elevated trop - this is presumed due to persistent tachycardia. We will trend to determine if this improves with rate control. There is no clinical evidence of ACS. 6) DM II - low glu on arrival - will be placed on a SS only 7) Asthma - currently tapering steroids - continue prescribed inhalers 8) Protein malnutrition - severe - supplements provided 9) CA - can f/u as outpt regarding current chemo and side effects as she is due for treatment next wk Full code - Xarelto can be restarted for prophylaxis if Hb is stable Total time for this admit including review of labs, meds, imaging, records - discussion with pt and ER attending - 42 min Resuscitation Status VTE Prophylaxis Will order VTE Prophylaxis: Yes
[2018-04-08] MEDS ORDERED: ONDANSETRON INJ 2 MG/ML 2 ML VIAL IV PRN (17:00)
[2018-04-08] MEDS ORDERED: VANCOMYCIN IV 2,000 MG in SODIUM CHLORIDE 0.9% 500ML 500 ML IV SCH (17:00)
[2018-04-08] MEDS ORDERED: POLYETHYLENE (MIRALAX) 17 GM PACK PO PRN (17:00)
[2018-04-08] MEDS ORDERED: ALUMINUM/MAGNESIUM/SIMETH (MAALOX MAX) 30 ML UDC PO PRN (17:00)
[2018-04-08] MEDS ORDERED: MoRPHine SULFATE 2 MG/ML CARP IV PRN (17:00)
[2018-04-08] MEDS ORDERED: MAGNESIUM HYDROXIDE SUSP 30 ML UDC PO PRN (17:00)
[2018-04-08] MEDS ORDERED: ACETAMINOPHEN 325 MG TAB PO PRN (17:00)
[2018-04-08] MEDS: POTASSIUM CHLR 10 MEQ / WTR 100 ML IV SCH ×3 (17:04→20:44)
[2018-04-08] MEDS ORDERED: METOPROLOL TARTRATE 25 MG TAB PO SCH (17:30)
[2018-04-08 18:30] VITALS: BP 103/66; PULSE 85; TEMP 36.4; O2SAT 96; BMI 35.6
[2018-04-08] MEDS ORDERED: CEFEPIME CONSULT ACTIVE PRN (20:00)
[2018-04-08 20:06] VITALS: BP 115/75; PULSE 71; TEMP 36.4; O2SAT 95
--- NOTE | 2018-04-08 20:20 | Pharmacy Progress Note ---
Pharmacy Abx Initial Consult Date of Service Apr 08, 2018. Pharmacy Dosing Scope Date of Consult: 04/08/18 Automatic Pharmacy Consultation for: Dr. Carty [facility] is consulted to initiate IV Vancomycin/Cefepime dosing therapy, order appropriate labs and adjust drug dose/frequency. Subjective The patient is a 77 year old female admitted on Apr 08, 2018 at 17:02. Objective Height (Feet): 4 Height (Inches): 11.00 Weight (Kilograms): 79.900 Vital Signs (Past 12Hrs) Vital Signs Past 12 Hours Date Time Temp Pulse Resp B/P (MAP) Pulse Ox O2 Delivery O2 Flow Rate FiO2 04/08/18 18:30 36.4 85 20 103/66 96 Nasal Cannula 2.0 04/08/18 17:31 96 20 120/74 98 Nasal Cannula 2.0 04/08/18 17:04 88 22 114/62 100 Nasal Cannula 2.0 04/08/18 16:10 94 20 116/72 100 Nasal Cannula 2.0 04/08/18 15:28 104 30 104/65 99 Nasal Cannula 2.0 04/08/18 14:55 117 30 114/83 99 Nasal Cannula 2.0 04/08/18 14:30 120 24 113/71 100 Nasal Cannula 2.0 04/08/18 14:15 114 22 119/73 100 Nasal Cannula 2.0 04/08/18 13:49 145 24 145/92 95 Nasal Cannula 2.0 04/08/18 13:12 98 Nasal Cannula 3.0 04/08/18 13:12 98 Nasal Cannula 2.0 04/08/18 13:07 139 04/08/18 12:30 36.7 126 16 111/59 94 Room Air Lab Results (24Hrs) Laboratory Tests (24 Hours) Test 04/08/18 13:35 White Blood Count 1.39 K/uL (4.8-10.8) L Red Blood Count 3.38 M/uL (4.2-5.4) L Hemoglobin 8.1 g/dL (12.0-16.0) L Hematocrit 26.9 % (37-47) L Mean Corpuscular Volume 79.6 fL (80-100) L Mean Corpuscular Hemoglobin 24.0 pg (25-34) L Mean Corpuscular Hemoglobin Concent 30.1 g/dl (32-36) L Platelet Count 143 K/uL (130-400) Mean Platelet Volume 10.1 fL (7.4-10.4) Neutrophils (%) (Auto) 47.5 % Lymphocytes (%) (Auto) 39.6 % Monocytes (%) (Auto) 7.9 % Eosinophils (%) (Auto) 3.6 % Basophils (%) (Auto) 1.4 % Neutrophils # (Auto) 0.66 K/uL (1.4-6.5) *L Lymphocytes # (Auto) 0.55 K/uL (1.2-3.4) L Monocytes # (Auto) 0.11 K/uL (0.11-0.59) Eosinophils # (Auto) 0.05 K/uL (0-0.5) Basophils # (Auto) 0.02 K/uL (0-0.2) Micro Results Date/Time Source Procedure Growth Status 04/08/18 13:35 Blood Blood Culture Pending Received 04/08/18 13:32 Blood Blood Culture Pending Received Risk Factors for Resistance * Immunocompromised (chronic steroid therapy, chemotherapy) Assessment & Plan Assessment 77 year old female with with metastatic lung cancer admitted for recurrent RLE cellulitis, febrile neutropenia & AFib Plan Vancomycin IV * Loading dose: Vancomycin 2gm IV x 1 dose (25mg/kg) * Maintenance dose: Vancomycin 1250mg IV q18h (15mg/kg) * Goal trough level for cellulitis/febrile neutropenia: 15-20mcg/mL * Trough level ordered for: 04/11/18 midnight dose Cefepime IV * 2000mg IV q8h Pharmacy will continue to follow and will adjust dose/frequency as necessary. Thank you.
[2018-04-08] MEDS: MONTELUKAST SOD 10 MG TAB PO SCH (20:51)
[2018-04-08] MEDS: BUDESONIDE 90 MCG INH INH SCH (20:51)
[2018-04-08] MEDS: CETIRIZINE HCL 10 MG TAB PO SCH (20:51)
[2018-04-08] MEDS: BOOST VANILLA OR BOOST GLUCOSE CONTROL CHOCOLATE PO SCH (21:00)
[2018-04-08] MEDS: CEFEPIME IV 2,000 MG in SYRINGE 7.5 ML IV SCH (21:51)
[2018-04-08 23:54] VITALS: BP 122/78; PULSE 79; TEMP 37; O2SAT 94
[2018-04-09 04:21] VITALS: BP 126/76; PULSE 103; TEMP 37; O2SAT 96
[2018-04-09] MEDS: CEFEPIME IV 2,000 MG in SYRINGE 7.5 ML IV SCH ×3 (06:25→22:05)
[2018-04-09 06:28] LABS: HEMATOCRIT 25.7 % (37-47); HEMOGLOBIN 7.8 g/dL (12.0-16.0); MEAN CELL VOLUME 79.8 fL (80-100); MEAN CORPUSCULAR HEMOGLOBIN 24.2 pg (25-34); MEAN CORPUSCULAR HGB CONC 30.4 g/dl (32-36); MEAN PLATELET VOLUME 10.9 fL (7.4-10.4); PLATELET COUNT 149 K/uL (130-400); RED CELL DISTRIBUTION WIDTH CV 17.2 % (11.5-14.5); WHITE BLOOD COUNT 1.55 K/uL (4.8-10.8)
[2018-04-09 06:48] LABS: CALCIUM 8.2 mg/dl (8.5-10.1); CREATININE 0.43 mg/dl (0.60-1.20); POTASSIUM 3.2 mmol/L (3.5-5.1)
[2018-04-09 07:16] VITALS: BP 124/73; PULSE 109; TEMP 37.5; O2SAT 98
[2018-04-09] MEDS: BUDESONIDE 90 MCG INH INH SCH ×2 (07:54→20:57)
[2018-04-09] MEDS: METOPROLOL SUCC 25MG EXT REL TAB PO SCH (07:54)
[2018-04-09] MEDS: DILTIAZEM HCL 120 MG EXT REL CAP PO SCH (07:55)
[2018-04-09] MEDS: BOOST VANILLA OR BOOST GLUCOSE CONTROL CHOCOLATE PO SCH ×2 (07:55→14:46)
[2018-04-09] MEDS: PANTOprazole SOD 40 MG TAB PO SCH (07:55)
[2018-04-09] MEDS: VANCOMYCIN IV 1,250 MG in SODIUM CHLORIDE 0.9% 250ML 250 ML IV SCH (10:46)
[2018-04-09 11:39] VITALS: BP 119/79; PULSE 87; TEMP 36.9; O2SAT 97
[2018-04-09] MEDS ORDERED: NURSING VERBAL MED ORDER ONE ×2 (11:45→13:15)
[2018-04-09 12:00] LABS: BASO % 0.7 %; BASO ABS # 0.01 K/uL (0-0.2); EOS % 2.2 %; EOS ABS # 0.03 K/uL (0-0.5); LYMPH % 28.1 %; LYMPH ABS # 0.39 K/uL (1.2-3.4); MONO % 10.8 %; MONO ABS # 0.15 K/uL (0.11-0.59); NEUT % 58.2 %; NEUT ABS # 0.81 K/uL (1.4-6.5)
[2018-04-09] MEDS ORDERED: VANCOMYCIN IV 1,250 MG in SODIUM CHLORIDE 0.9% 250ML 250 ML IV SCH (12:00)
[2018-04-09] MEDS ORDERED: MAGNESIUM SULFATE 1GM / D5W 100 ML IV SCH (12:30)
--- NOTE | 2018-04-09 12:47 | Progress Note ---
Subjective Date of Service: Apr 09, 2018. Subjective Pt evaluation today including: conversation w/ patient, physical exam, chart review, lab review, review of studies, conversation w/ insurance consultant, review of inpatient medication list Sitting up in chair, eating lunch, some dry cough, which is not new, no shortness of breath, report right lower extremity cellulitis is better, Problem List Medical Problems: (1) Anemia Status: Acute (2) Cellulitis of right leg Status: Acute (3) Elevated troponin Status: Acute (4) Hypomagnesemia Status: Acute (5) Neutropenia Status: Acute (6) Rapid atrial fibrillation Status: Acute Review of Systems Constitutional: + weakness, + fatigue, No fever, No chills, No sweats, No weight loss, No problem reported Eyes: No worsening of vision, No eye pain, No redness, No discharge, No diplopia ENT: No hearing loss, No unusual epistaxis, No nasal symptoms, No sore throat, No tinnitus, No dental problems, No trouble swallowing Respiratory: + cough, No sputum, No wheezing, No dyspnea at rest, No hemoptysis Cardiac: No chest pain, No orthopnea, No PND, No edema, No claudication, No palpitations Abdomen: No pain, No nausea, No vomiting, No diarrhea, No constipation Musculoskeletal: No joint pain, No muscle pain, No swelling, No calf pain Female : No dysuria, No urinary frequency, No hematuria, No incontinence, No abnormal vaginal bleeding, No vaginal discharge Neurologic: No memory loss, No paralysis, No weakness, No numbness/tingling, No vertigo, No balance problems Psychiatric: No depression symptoms, No anhedonism, No anxiety, No insomnia, No substance abuse Heme: No abnormal bleeding/bruising, No clotting problems, No swollen lymph nodes, No night sweats Endo: No fatigue, No excessive thirst, No excessive urination Skin: + rash (Right lower extremity), No itch, No new/changing skin lesions, No color change, No bleeding Objective Vital Signs Date Time Temp Pulse Resp B/P (MAP) Pulse Ox O2 Delivery O2 Flow Rate FiO2 04/09/18 11:39 36.9 87 20 119/79 (92) 97 Nasal Cannula 2.0 04/09/18 08:00 Nasal Cannula 2.0 04/09/18 07:16 37.5 109 20 124/73 (90) 98 Nasal Cannula 2.0 04/09/18 04:21 37.0 103 22 126/76 (93) 96 Nasal Cannula 2.0 04/08/18 23:54 37.0 79 20 122/78 (93) 94 Nasal Cannula 2.0 04/08/18 20:06 36.4 71 20 115/75 (88) 95 Nasal Cannula 2.0 04/08/18 20:00 Nasal Cannula 2.0 04/08/18 18:30 36.4 85 20 103/66 96 Nasal Cannula 2.0 04/08/18 17:31 96 20 120/74 98 Nasal Cannula 2.0 04/08/18 17:04 88 22 114/62 100 Nasal Cannula 2.0 04/08/18 16:10 94 20 116/72 100 Nasal Cannula 2.0 04/08/18 15:28 104 30 104/65 99 Nasal Cannula 2.0 04/08/18 14:55 117 30 114/83 99 Nasal Cannula 2.0 04/08/18 14:30 120 24 113/71 100 Nasal Cannula 2.0 04/08/18 14:15 114 22 119/73 100 Nasal Cannula 2.0 04/08/18 13:49 145 24 145/92 95 Nasal Cannula 2.0 04/08/18 13:12 98 Nasal Cannula 3.0 04/08/18 13:12 98 Nasal Cannula 2.0 04/08/18 13:07 139 Physical Exam General Appearance: WD/WN, no apparent distress, + obese, + pertinent finding ( Chronic ill looking,) Eyes: normal inspection, PERRL, EOMI, sclerae normal ENT: normal ENT inspection, hearing grossly normal, pharynx normal Neck: supple, no adenopathy, thyroid normal, no JVD, no carotid bruits, trachea midline Respiratory/Chest: chest non-tender, normal breath sounds, no respiratory distress, no accessory muscle use, + decreased breath sounds Cardiovascular: no gallop, no JVD, no murmur, + irregularly irregular Abdomen: normal bowel sounds, non tender, soft, no organomegaly, no pulsatile mass Extremities: normal range of motion, non-tender, normal inspection, no pedal edema, no calf tenderness, normal capillary refill, pelvis stable, + pertinent finding (Trace edema) 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, no motor/sensory deficits, alert, normal mood/affect, oriented x 3 Skin: + pertinent finding (Right lower extremity cellulitis mild warm, the reddish area is shrinking from the marked, No open wound no drainage) Lymphatic: no adenopathy Laboratory Results Last 24 Hours Test 04/08/18 13:35 04/08/18 13:49 04/08/18 20:26 04/08/18 23:37 White Blood Count 1.39 K/uL Red Blood Count 3.38 M/uL Hemoglobin 8.1 g/dL Hematocrit 26.9 % Mean Corpuscular Volume 79.6 fL Mean Corpuscular Hemoglobin 24.0 pg Mean Corpuscular Hemoglobin Concent 30.1 g/dl Platelet Count 143 K/uL Mean Platelet Volume 10.1 fL Neutrophils (%) (Auto) 47.5 % Lymphocytes (%) (Auto) 39.6 % Monocytes (%) (Auto) 7.9 % Eosinophils (%) (Auto) 3.6 % Basophils (%) (Auto) 1.4 % Neutrophils # (Auto) 0.66 K/uL Lymphocytes # (Auto) 0.55 K/uL Monocytes # (Auto) 0.11 K/uL Eosinophils # (Auto) 0.05 K/uL Basophils # (Auto) 0.02 K/uL RDW Standard Deviation 49.9 fL RDW Coefficient of Variation 17.3 % Immature Granulocyte % (Auto) 0.0 % Immature Granulocyte # (Auto) 0.00 K/uL Large Platelets 1+ Giant Platelets 1+ Hypochromasia PRESENT Anisocytosis PRESENT Prothrombin Time 10.8 SECONDS Prothromb Time International Ratio 1.0 Activated Partial Thromboplast Time 30.1 SECONDS Partial Thromboplastin Ratio 1.2 Sodium Level 135 mmol/L Potassium Level 3.0 mmol/L Chloride Level 99 mmol/L Carbon Dioxide Level 25 mmol/L Anion Gap 11.0 mmol/L Blood Urea Nitrogen 12 mg/dl Creatinine 0.51 mg/dl Est Creatinine Clear Calc Drug Dose 81.8 ml/min Estimated GFR () 106.0 Estimated GFR (Non- 91.5 BUN/Creatinine Ratio 22.5 Random Glucose 76 mg/dl Calcium Level 8.1 mg/dl Magnesium Level 1.2 mg/dl Total Bilirubin 1.8 mg/dl Aspartate Amino Transf (AST/SGOT) 16 U/L Alanine Aminotransferase (ALT/SGPT) 18 U/L Alkaline Phosphatase 78 U/L Troponin I 0.118 ng/ml 0.107 ng/ml 0.100 ng/ml Total Protein 5.7 gm/dl Albumin 2.1 gm/dl Globulin 3.6 gm/dl Albumin/Globulin Ratio 0.6 Bedside Lactic Acid Venous 1.66 mmol/L Test 04/09/18 00:00 04/09/18 01:10 04/09/18 05:25 04/09/18 07:13 Stool Occult Blood NEGATIVE Urine Color DK YELLOW Urine Appearance CLOUDY Urine pH 5.0 Urine Specific [place] 1.027 Urine Protein TRACE Urine Glucose (UA) NEG Urine Ketones 2+ Urine Occult Blood NEG Urine Nitrite NEG Urine Bilirubin NEG Urine Urobilinogen NEG Urine Leukocyte Esterase NEG Urine WBC (Auto) 5-10 /hpf Urine RBC (Auto) 0-4 /hpf Urine Hyaline Casts (Auto) 10-30 /lpf Urine Epithelial Cells (Auto) >30 /lpf Urine Bacteria (Auto) 1+ Urine Renal Epithelial Cells /lpf Urine Pathogenic Casts 10-20 GRANULAR CASTS /lpf White Blood Count 1.55 K/uL Red Blood Count 3.22 M/uL Hemoglobin 7.8 g/dL Hematocrit 25.7 % Mean Corpuscular Volume 79.8 fL Mean Corpuscular Hemoglobin 24.2 pg Mean Corpuscular Hemoglobin Concent 30.4 g/dl Platelet Count 149 K/uL Mean Platelet Volume 10.9 fL Neutrophils (%) (Auto) 58.2 % Lymphocytes (%) (Auto) 28.1 % Monocytes (%) (Auto) 10.8 % Eosinophils (%) (Auto) 2.2 % Basophils (%) (Auto) 0.7 % Neutrophils # (Auto) 0.81 K/uL Lymphocytes # (Auto) 0.39 K/uL Monocytes # (Auto) 0.15 K/uL Eosinophils # (Auto) 0.03 K/uL Basophils # (Auto) 0.01 K/uL RDW Standard Deviation 50.0 fL RDW Coefficient of Variation 17.2 % Immature Granulocyte % (Auto) 0.0 % Immature Granulocyte # (Auto) 0.00 K/uL Sodium Level 135 mmol/L Potassium Level 3.2 mmol/L Chloride Level 100 mmol/L Carbon Dioxide Level 24 mmol/L Anion Gap 11.0 mmol/L Blood Urea Nitrogen 11 mg/dl Creatinine 0.43 mg/dl Est Creatinine Clear Calc Drug Dose 96.8 ml/min Estimated GFR () 112.1 Estimated GFR (Non- 96.7 BUN/Creatinine Ratio 24.9 Random Glucose 58 mg/dl Calcium Level 8.2 mg/dl Magnesium Level 1.7 mg/dl Bedside Glucose 63 mg/dl Test 04/09/18 07:38 04/09/18 11:36 Bedside Glucose 80 mg/dl 103 mg/dl Assessment and Plan 77 y/o F admitted on April 08, 2018 because of neutropenic fever and pain and inflammation of the RLE. Hx AF, PE, DM II, asthma, HTN, HPL, anxiety, GERD, Metastatic lung CA diagnosed 2014. Neutropenic fever, normal fever, ANC 810 today compared to 660 yesterday, Infectious source possible from cellulitis of RLE Continue cefepime and Vanc Follow-up culture results. Continue neutropenic precautions Has requested hematology consultation AF - RVR likely due to fever and medical noncompliance. was placed on a Cardizem drip at the time of admission. Continue Cardizem p.o. and beta-debora, she has been on anticoagulated with Xarelto , will restart today because Hemoccult negative, hemoglobin relative stable Patient's anemia is relative to stable, stool Hemoccult is negative Hypokalemia, hypomagnesemia, follow-up and replace Minimal elevated trop, has been trends down, no clinical evidence of ACS. Mild hypoglycemia with DM II , continue insulin sliding scale Asthma - currently tapering steroids - continue prescribed inhalers Protein malnutrition - severe - supplements provided Poorly differentiated Adenocarcinoma IBETH. Diagnosed 2014. Initially treated with Carboplatinum and Taxol. Cancer metastatic to bone, liver, spleen. recently evaluated for radiation to a pelvic lesion Full code - Xarelto, for DVT prophylaxis Continued [facility] stay due to: multiple IV medications needed Discharge planning: home
[2018-04-09] MEDS ORDERED: POTASSIUM CHLORIDE 20 MEQ TABCR PO ONE (13:00)
[2018-04-09] MEDS ORDERED: POTASSIUM CHLORIDE 20 MEQ/15 ML UDC PO ONE (14:45)
[2018-04-09 15:01] VITALS: BP 119/75; PULSE 77; TEMP 36.5; O2SAT 98
[2018-04-09 15:42] VITALS: Ht 149.9 cm; Wt 78.3 kg
[2018-04-09] MEDS: BOOST GLUCOSE CONTROL VANILLA PO SCH (16:56)
[2018-04-09 19:55] VITALS: BP 119/72; PULSE 79; TEMP 36.5; O2SAT 99
[2018-04-09] MEDS: CETIRIZINE HCL 10 MG TAB PO SCH (20:58)
[2018-04-09] MEDS: MONTELUKAST SOD 10 MG TAB PO SCH (20:58)
[2018-04-10] VITALS (8 sets, daily range): BP systolic 113–133; BP diastolic 55–85; PULSE 71–86; TEMP 36.4–37; O2SAT 92–100
[2018-04-10] MEDS: VANCOMYCIN IV 1,250 MG in SODIUM CHLORIDE 0.9% 250ML 250 ML IV SCH ×2 (00:10→15:13)
[2018-04-10 04:59] LABS: CALCIUM 8.4 mg/dl (8.5-10.1); CREATININE 0.51 mg/dl (0.60-1.20); POTASSIUM 4.5 mmol/L (3.5-5.1)
[2018-04-10 05:08] LABS: BASO % 0.6 %; BASO ABS # 0.01 K/uL (0-0.2); EOS % 0.6 %; EOS ABS # 0.01 K/uL (0-0.5); HEMATOCRIT 23.4 % (37-47); IG# 0.01 K/uL (0.00-0.02); LYMPH % 22.9 %; LYMPH ABS # 0.36 K/uL (1.2-3.4); MEAN CELL VOLUME 79.6 fL (80-100); MEAN CORPUSCULAR HEMOGLOBIN 23.8 pg (25-34); MEAN CORPUSCULAR HGB CONC 29.9 g/dl (32-36); MEAN PLATELET VOLUME 10.9 fL (7.4-10.4); MONO % 18.5 %; MONO ABS # 0.29 K/uL (0.11-0.59); NEUT % 56.8 %; NEUT ABS # 0.89 K/uL (1.4-6.5); PLATELET COUNT 220 K/uL (130-400); RED CELL DISTRIBUTION WIDTH SD 49.1 fL (36.4-46.3); WHITE BLOOD COUNT 1.57 K/uL (4.8-10.8)
[2018-04-10] MEDS: CEFEPIME IV 2,000 MG in SYRINGE 7.5 ML IV SCH ×3 (06:31→22:07)
[2018-04-10] MEDS: BOOST GLUCOSE CONTROL VANILLA PO SCH ×4 (08:09→17:30)
[2018-04-10] MEDS: BUDESONIDE 90 MCG INH INH SCH ×2 (08:10→19:46)
[2018-04-10] MEDS: PANTOprazole SOD 40 MG TAB PO SCH (08:12)
[2018-04-10] MEDS: METOPROLOL SUCC 25MG EXT REL TAB PO SCH (08:12)
[2018-04-10] MEDS: DILTIAZEM HCL 120 MG EXT REL CAP PO SCH (08:13)
[2018-04-10] MEDS ORDERED: RIVAROXABAN 20 MG TAB PO SCH (09:00)
--- NOTE | 2018-04-10 09:50 | Progress Note ---
Subjective Date of Service: Apr 10, 2018. Subjective Pt evaluation today including: conversation w/ patient, physical exam, lab review, review of inpatient medication list Pain: less pain in right leg PO Intake: improving Voiding: no voiding problems patient says she is feeling a lot better, less redness, less pain, less warmth in right leg participating with therapy eating more, appetite is coming back reviewed labs, WBC trending up slowly, neutrophils 890 Hb down to 7.0 from 7.8, unclear etiology, no evidence of bleeding, no h/o GIB to her knowledge reviewed tele monitor, HR stable in the 80's discussed that could probably move except Hb down, will repeat this afternoon Problem List Medical Problems: (1) Anemia Status: Acute (2) Cellulitis of right leg Status: Acute (3) Elevated troponin Status: Acute (4) Hypomagnesemia Status: Acute (5) Neutropenia Status: Acute (6) Rapid atrial fibrillation Status: Acute Review of Systems Constitutional: + weakness, + fatigue Cardiac: + edema (chronic lymphedema in legs) Skin: + rash (right leg redness) All Other Systems: Reviewed and Negative Medications Current Inpatient Medications Medications (Trade) Dose Ordered Sig/Olga Route Start Time Stop Time Status Last Admin Dose Admin Alprazolam (Xanax Tab) 0.5 mg DAILY PRN PO 04/08/18 15:45 05/08/18 15:44 Cetirizine HCl (zyrTEC TAB) 10 mg QPM PO 04/08/18 21:00 05/08/18 20:59 04/09/18 20:58 10 MG Diltiazem HCl (TIAzac CAP) 240 mg DAILY PO 04/09/18 09:00 05/09/18 08:59 04/10/18 08:13 240 MG Albuterol/ Ipratropium (Duoneb) 1 ml Q6H PRN INH 04/08/18 15:45 05/08/18 15:44 Metoprolol Succinate (Toprol Xl Tab) 25 mg DAILY PO 04/09/18 09:00 05/09/18 08:59 04/10/18 08:12 25 MG Montelukast Sodium (Singulair Tab) 10 mg QPM PO 04/08/18 21:00 05/08/18 20:59 04/09/18 20:58 10 MG Pantoprazole Sodium (Protonix Tab) 40 mg QAM PO 04/09/18 09:00 05/09/18 08:59 04/10/18 08:12 40 MG Prednisone (PredniSONE TAB) 20 mg BID PO 04/08/18 21:00 05/08/18 20:59 04/09/18 07:54 20 MG Budesonide (Pulmicort Inhaler) 4 puffs BID INH 04/08/18 21:00 05/08/18 20:59 04/10/18 08:10 4 PUFFS Miscellaneous Information (Order Awaiting Action) 1 ea QS N/A 04/09/18 00:00 05/09/18 00:00 Vancomycin HCl (Consult) 1 ea UD PRN N/A 04/08/18 16:15 05/08/18 16:14 Acetaminophen (Tylenol Tab) 650 mg Q4H PRN PO 04/08/18 17:00 05/08/18 16:59 Al Hydrox/Mg Hydrox/Simethicone (Maalox Max Susp) 15 ml Q4H PRN PO 04/08/18 17:00 05/08/18 16:59 Magnesium Hydroxide (Milk Of Magnesia Susp) 30 ml Q12H PRN PO 04/08/18 17:00 05/08/18 16:59 Ondansetron HCl (Zofran Inj) 4 mg Q6H PRN IV 04/08/18 17:00 05/08/18 16:59 04/09/18 14:59 4 MG Morphine Sulfate (MoRPHine SULFATE INJ) 2 mg Q30M PRN IV 04/08/18 17:00 04/22/18 16:59 Polyethylene (Miralax Powder Packet) 17 gm DAILY PRN PO 04/08/18 17:00 05/08/18 16:59 Cefepime HCl 2000 mg/Syringe 20 ml @ 5 mls/min Q8 IV 04/08/18 22:00 04/18/18 21:59 04/10/18 06:31 5 MLS/MIN Cefepime HCl (Consult) 1 ea UD PRN N/A 04/08/18 20:00 05/08/18 19:59 Vancomycin HCl 1250 mg/Sodium Chloride 275 ml @ 125 mls/hr Q14H IV 04/09/18 10:00 04/19/18 09:59 04/10/18 00:10 125 MLS/HR Rivaroxaban (Xarelto Tab) 20 mg DAILY PO 04/10/18 09:00 05/10/18 08:59 04/09/18 20:58 20 MG Enteral Nutritional Formula (Boost Glucose Control) 1 can TIDM PO 04/09/18 16:45 05/09/18 16:44 04/10/18 08:09 1 CAN Objective Vital Signs Date Time Temp Pulse Resp B/P (MAP) Pulse Ox O2 Delivery O2 Flow Rate FiO2 04/10/18 06:51 36.6 80 22 113/55 (74) 94 Room Air 04/10/18 04:30 36.4 77 20 133/85 (101) 99 Nasal Cannula 2.0 04/10/18 00:19 36.9 71 18 117/70 (86) 98 Nasal Cannula 2.0 04/09/18 20:00 Nasal Cannula 2.0 04/09/18 19:55 36.5 79 20 119/72 (88) 99 Nasal Cannula 2.0 04/09/18 15:01 36.5 77 20 119/75 (90) 98 Nasal Cannula 2.0 04/09/18 11:39 36.9 87 20 119/79 (92) 97 Nasal Cannula 2.0 Physical Exam General Appearance: WD/WN, no apparent distress Eyes: normal inspection, EOMI, sclerae normal ENT: normal ENT inspection, hearing grossly normal, pharynx normal Neck: supple, no adenopathy, no JVD, trachea midline Respiratory/Chest: chest non-tender, lungs clear, normal breath sounds, no respiratory distress, no accessory muscle use Cardiovascular: regular rate, rhythm, no edema, no gallop, no JVD, no murmur Abdomen: normal bowel sounds, non tender, soft, no organomegaly Extremities: normal range of motion, no calf tenderness, normal capillary refill, pelvis stable, + pedal edema (bilateral lymphedema, chronic, at baseline ) 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/Psychiatric: 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, alert, normal mood/affect, oriented x 3, + motor weakness (generalized) Skin: + rash (right leg erythema, receding from original border, [employer] to palpation, but skin not hot) Laboratory Results Last 24 Hours Test 04/09/18 11:36 04/09/18 16:35 04/09/18 20:42 04/10/18 04:08 Bedside Glucose 103 mg/dl 190 mg/dl 209 mg/dl White Blood Count 1.57 K/uL Red Blood Count 2.94 M/uL Hemoglobin 7.0 g/dL Hematocrit 23.4 % Mean Corpuscular Volume 79.6 fL Mean Corpuscular Hemoglobin 23.8 pg Mean Corpuscular Hemoglobin Concent 29.9 g/dl Platelet Count 220 K/uL Mean Platelet Volume 10.9 fL Neutrophils (%) (Auto) 56.8 % Lymphocytes (%) (Auto) 22.9 % Monocytes (%) (Auto) 18.5 % Eosinophils (%) (Auto) 0.6 % Basophils (%) (Auto) 0.6 % Neutrophils # (Auto) 0.89 K/uL Lymphocytes # (Auto) 0.36 K/uL Monocytes # (Auto) 0.29 K/uL Eosinophils # (Auto) 0.01 K/uL Basophils # (Auto) 0.01 K/uL RDW Standard Deviation 49.1 fL RDW Coefficient of Variation 17.0 % Immature Granulocyte % (Auto) 0.6 % Immature Granulocyte # (Auto) 0.01 K/uL Large Platelets 2+ Sodium Level 140 mmol/L Potassium Level 4.5 mmol/L Chloride Level 106 mmol/L Carbon Dioxide Level 29 mmol/L Anion Gap 5.0 mmol/L Blood Urea Nitrogen 9 mg/dl Creatinine 0.51 mg/dl Est Creatinine Clear Calc Drug Dose 81.6 ml/min Estimated GFR () 106.0 Estimated GFR (Non- 91.5 BUN/Creatinine Ratio 18.1 Random Glucose 109 mg/dl Calcium Level 8.4 mg/dl Phosphorus Level 2.0 mg/dl Magnesium Level 2.1 mg/dl Test 04/10/18 07:38 Bedside Glucose 102 mg/dl Assessment and Plan 77 y/o F admitted on April 08, 2018 because of neutropenic fever and pain and inflammation of the RLE. Hx AF, PE, DM II, asthma, HTN, HPL, anxiety, GERD, Metastatic lung CA diagnosed 2014. - Right leg cellulitis, neutropenia, neutropenic fever improvement in cellulitis, WBC coming up slowly continue Cefepime and Vancomycin for now will need 14 days antibiotics blood cultures negative thus far hematology consult pending - Worsening anemia Hb down to 7.0 from 7.8, no evidence of bleeding, heme occult was negative no h/o GI bleeding or ulcers to her knowledge continue Xarelto for now repeat Hb this afternoon, if below 7.0 then will need to discuss transfusion - Afib with RVR HR controlled in the 's, examines with normal rhythm continue Cardizem 240mg PO daily and Toprol 25mg daily Xarelto this morning, will place hold for tomorrow pending Hb work up Hypokalemia, hypomagnesemia, follow-up and replace Minimal elevated trop, has been trends down, no clinical evidence of ACS. Mild hypoglycemia with DM II , continue insulin sliding scale no further hypoglycemic episodes Asthma - currently tapering steroids - continue prescribed inhalers Protein malnutrition - severe - supplements provided Poorly differentiated Adenocarcinoma IBETH. Diagnosed 2014. Initially treated with Carboplatinum and Taxol. Cancer metastatic to bone, liver, spleen. recently evaluated for radiation to a pelvic lesion Full code - Xarelto, for DVT prophylaxis Continued [facility] stay due to: multiple IV medications needed Discharge planning: home
[2018-04-10] MEDS ORDERED: VANCOMYCIN TROUGH ONE ×2 (11:30→13:30)
[2018-04-10 13:44] LABS: HEMATOCRIT 24.1 % (37-47); HEMOGLOBIN 7.3 g/dL (12.0-16.0)
--- NOTE | 2018-04-10 14:55 | Pharmacy Progress Note ---
Pharmacy Abx Dose Short Note Date of Service Apr 10, 2018. Assessment & Plan Assessment 77 year old female receiving Cefepime 2gm Q8 and Vancomycin 1250mg IV Q14H for treatment of R leg cellulitis/febrile neutropenia WBCs and Neutrophils slowly improving Day # 3 of antimicrobial therapy. Item Value Date Time Vancomycin Level Trough 14.3 mcg/ml 04/10/18 1330 Item Value Date Time Neutrophils # (Auto) 0.89 K/uL *L 04/10/18 0408 White Blood Count 1.57 K/uL L 04/10/18 0408 Plan Vancomycin * Trough level of 14.3 mcg/mL is slightly subtherapeutic, however, dosing frequency was increased between loading dose and 1st dose. Based on estimated PK parameters, patient should be within therapeutic range over next 1-2 doses. * ke: 0.07 hr-1, T1/2: ~10 hrs * Continue dose of 1250 mg IV every 14 hours * Goal trough level: 15 to 20 mcg/mL * Trough level ordered for: 04/12/2018 before 0800 dose Cefepime * Current dose appropriate based on patient's renal function. Pharmacy will continue to follow and will adjust dose/frequency as necessary. Thank you.
[2018-04-10] MEDS ORDERED: NURSING VERBAL MED ORDER ONE (17:15)
[2018-04-10] MEDS: MONTELUKAST SOD 10 MG TAB PO SCH (19:45)
[2018-04-10] MEDS: CETIRIZINE HCL 10 MG TAB PO SCH (19:45)
[2018-04-10] MEDS: RIVAROXABAN 20 MG TAB PO SCH (19:45)
[2018-04-10] MEDS ORDERED: VANCOMYCIN TROUGH SCH (23:30)
[2018-04-11] VITALS (7 sets, daily range): BP systolic 116–140; BP diastolic 72–77; PULSE 80–96; TEMP 36.2–36.8; O2SAT 87–97
[2018-04-11] MEDS: VANCOMYCIN IV 1,250 MG in SODIUM CHLORIDE 0.9% 250ML 250 ML IV SCH ×2 (04:03→18:41)
[2018-04-11] MEDS: CEFEPIME IV 2,000 MG in SYRINGE 7.5 ML IV SCH ×2 (06:29→14:11)
[2018-04-11 07:29] LABS: CREATININE 0.63 mg/dl (0.60-1.20)
[2018-04-11] MEDS: PANTOprazole SOD 40 MG TAB PO SCH (08:03)
[2018-04-11] MEDS: DILTIAZEM HCL 120 MG EXT REL CAP PO SCH (08:03)
[2018-04-11] MEDS: METOPROLOL SUCC 25MG EXT REL TAB PO SCH (08:03)
[2018-04-11] MEDS: BUDESONIDE 90 MCG INH INH SCH ×2 (08:04→19:59)
[2018-04-11] MEDS: BOOST GLUCOSE CONTROL VANILLA PO SCH ×3 (08:04→17:12)
[2018-04-11 09:54] LABS: HEMATOCRIT 25.3 % (37-47); HEMOGLOBIN 7.6 g/dL (12.0-16.0); MEAN CELL VOLUME 81.4 fL (80-100); MEAN CORPUSCULAR HEMOGLOBIN 24.4 pg (25-34); MEAN PLATELET VOLUME 10.7 fL (7.4-10.4); NUCLEATED RED BLOOD CELL ABS 0.02 K/uL (0-0); PLATELET COUNT 333 K/uL (130-400); RED CELL DISTRIBUTION WIDTH CV 17.4 % (11.5-14.5); RED CELL DISTRIBUTION WIDTH SD 50.2 fL (36.4-46.3); WHITE BLOOD COUNT 1.67 K/uL (4.8-10.8)
[2018-04-11 09:57] LABS: BASO % 3.6 %; BASO ABS # 0.06 K/uL (0-0.2); EOS % 1.2 %; EOS ABS # 0.02 K/uL (0-0.5); IG# 0.08 K/uL (0.00-0.02); LYMPH % 29.9 %; MONO % 25.7 %; MONO ABS # 0.43 K/uL (0.11-0.59); NEUT % 34.8 %; NEUT ABS # 0.58 K/uL (1.4-6.5)
[2018-04-11] MEDS ORDERED: FILGRASTIM 480 MCG/1.6 ML VIAL SC ONE (10:30)
[2018-04-11] MEDS: LACTOBACILLUS ACIDOPHILUS (FLORANEX) TAB PO SCH ×2 (12:07→17:12)
--- NOTE | 2018-04-11 14:12 | Progress Note ---
Subjective Date of Service: Apr 11, 2018. Subjective Pt evaluation today including: conversation w/ patient, physical exam, lab review, review of inpatient medication list Pain: no pain PO Intake: adequate, getting better Voiding: no voiding problems patient doing well, less redness in right leg, less tenderness ambulating well in the hallway with PT reviewed labs, still with neutropenia at 0.58, Hb low at 7.6 but trending up slightly last chemotherapy session was 1-2 weeks ago, asking if Dr. Ruiz will see her HR stable on monitor, will transfer to medical floor Problem List Medical Problems: (1) Anemia Status: Acute (2) Cellulitis of right leg Status: Acute (3) Elevated troponin Status: Acute (4) Hypomagnesemia Status: Acute (5) Neutropenia Status: Acute (6) Rapid atrial fibrillation Status: Acute Review of Systems Cardiac: + edema (bilaterally) Skin: + rash (right leg) All Other Systems: Reviewed and Negative Medications Current Inpatient Medications Medications (Trade) Dose Ordered Sig/Olga Route Start Time Stop Time Status Last Admin Dose Admin Alprazolam (Xanax Tab) 0.5 mg DAILY PRN PO 04/08/18 15:45 05/08/18 15:44 Cetirizine HCl (zyrTEC TAB) 10 mg QPM PO 04/08/18 21:00 05/08/18 20:59 04/10/18 19:45 10 MG Diltiazem HCl (TIAzac CAP) 240 mg DAILY PO 04/09/18 09:00 05/09/18 08:59 04/11/18 08:03 240 MG Albuterol/ Ipratropium (Duoneb) 1 ml Q6H PRN INH 04/08/18 15:45 05/08/18 15:44 Metoprolol Succinate (Toprol Xl Tab) 25 mg DAILY PO 04/09/18 09:00 05/09/18 08:59 04/11/18 08:03 25 MG Montelukast Sodium (Singulair Tab) 10 mg QPM PO 04/08/18 21:00 05/08/18 20:59 04/10/18 19:45 10 MG Pantoprazole Sodium (Protonix Tab) 40 mg QAM PO 04/09/18 09:00 05/09/18 08:59 04/11/18 08:03 40 MG Prednisone (PredniSONE TAB) 20 mg BID PO 04/08/18 21:00 05/08/18 20:59 04/09/18 07:54 20 MG Budesonide (Pulmicort Inhaler) 4 puffs BID INH 04/08/18 21:00 05/08/18 20:59 04/11/18 08:04 4 PUFFS Miscellaneous Information (Order Awaiting Action) 1 ea QS N/A 04/09/18 00:00 05/09/18 00:00 Vancomycin HCl (Consult) 1 ea UD PRN N/A 04/08/18 16:15 05/08/18 16:14 Acetaminophen (Tylenol Tab) 650 mg Q4H PRN PO 04/08/18 17:00 05/08/18 16:59 Al Hydrox/Mg Hydrox/Simethicone (Maalox Max Susp) 15 ml Q4H PRN PO 04/08/18 17:00 05/08/18 16:59 Magnesium Hydroxide (Milk Of Magnesia Susp) 30 ml Q12H PRN PO 04/08/18 17:00 05/08/18 16:59 Ondansetron HCl (Zofran Inj) 4 mg Q6H PRN IV 04/08/18 17:00 05/08/18 16:59 04/09/18 14:59 4 MG Morphine Sulfate (MoRPHine SULFATE INJ) 2 mg Q30M PRN IV 04/08/18 17:00 04/22/18 16:59 Polyethylene (Miralax Powder Packet) 17 gm DAILY PRN PO 04/08/18 17:00 05/08/18 16:59 Cefepime HCl 2000 mg/Syringe 20 ml @ 5 mls/min Q8 IV 04/08/18 22:00 04/18/18 21:59 04/11/18 06:29 5 MLS/MIN Cefepime HCl (Consult) 1 ea UD PRN N/A 04/08/18 20:00 05/08/18 19:59 Vancomycin HCl 1250 mg/Sodium Chloride 275 ml @ 125 mls/hr Q14H IV 04/09/18 10:00 04/19/18 09:59 Future Hold 04/11/18 04:03 125 MLS/HR Enteral Nutritional Formula (Boost Glucose Control) 1 can TIDM PO 04/09/18 16:45 05/09/18 16:44 04/11/18 12:07 1 CAN Rivaroxaban (Xarelto Tab) 20 mg HS PO 04/10/18 21:00 05/10/18 20:59 04/10/18 19:45 20 MG Heparin Sodium (Porcine) (Heparin 100 Unit/ml 5ml Flush) 5 ml PRN PRN FLUSH 04/10/18 17:45 05/10/18 17:44 04/10/18 18:37 5 ML Lactobacillus Acidophilus (Floranex Tab) 4 tab TIDM PO 04/11/18 11:30 05/11/18 11:29 04/11/18 12:07 4 TAB Objective Vital Signs Date Time Temp Pulse Resp B/P (MAP) Pulse Ox O2 Delivery O2 Flow Rate FiO2 04/11/18 10:59 36.8 96 20 140/73 (95) 97 Nasal Cannula 2.0 04/11/18 08:00 Room Air 04/11/18 06:41 36.4 91 20 139/72 (94) 91 Room Air 04/11/18 04:11 36.8 83 20 133/77 (95) 92 Nasal Cannula 2.0 04/10/18 23:36 37.0 76 22 122/75 (91) 100 Nasal Cannula 2.0 04/10/18 20:00 Room Air 04/10/18 19:50 36.7 77 20 123/75 (91) 92 Room Air 04/10/18 16:00 92 Room Air 04/10/18 14:58 36.4 80 20 119/65 (83) 92 Room Air Physical Exam General Appearance: WD/WN, no apparent distress Eyes: normal inspection, EOMI, sclerae normal ENT: normal ENT inspection, hearing grossly normal, pharynx normal Neck: supple, no adenopathy, no JVD, trachea midline Respiratory/Chest: chest non-tender, lungs clear, normal breath sounds, no respiratory distress, no accessory muscle use Cardiovascular: regular rate, rhythm, no edema, no gallop, no JVD, no murmur Abdomen: normal bowel sounds, non tender, soft, no organomegaly Extremities: normal range of motion, non-tender, normal inspection, no calf tenderness, pelvis stable, + pedal edema (bilateral lymphedema, chronic) Neurologic/Psychiatric: auto inspector II-XII nml as tested, alert, normal mood/affect, oriented x 3, + motor weakness (generalized) Skin: + rash (right leg erythema, improved, receding from borders, warm but not hot, no blistering) Laboratory Results Last 24 Hours Test 04/10/18 16:35 04/10/18 21:02 04/11/18 06:51 04/11/18 06:56 Bedside Glucose 121 mg/dl 134 mg/dl Creatinine 0.63 mg/dl Est Creatinine Clear Calc Drug Dose 65.4 ml/min Estimated GFR () 98.9 Estimated GFR (Non- 85.3 White Blood Count 1.67 K/uL Red Blood Count 3.11 M/uL Hemoglobin 7.6 g/dL Hematocrit 25.3 % Mean Corpuscular Volume 81.4 fL Mean Corpuscular Hemoglobin 24.4 pg Mean Corpuscular Hemoglobin Concent 30.0 g/dl Platelet Count 333 K/uL Mean Platelet Volume 10.7 fL Neutrophils (%) (Auto) 34.8 % Lymphocytes (%) (Auto) 29.9 % Monocytes (%) (Auto) 25.7 % Eosinophils (%) (Auto) 1.2 % Basophils (%) (Auto) 3.6 % Neutrophils # (Auto) 0.58 K/uL Lymphocytes # (Auto) 0.50 K/uL Monocytes # (Auto) 0.43 K/uL Eosinophils # (Auto) 0.02 K/uL Basophils # (Auto) 0.06 K/uL RDW Standard Deviation 50.2 fL RDW Coefficient of Variation 17.4 % Immature Granulocyte % (Auto) 4.8 % Immature Granulocyte # (Auto) 0.08 K/uL Nucleated RBC Absolute Count (auto) 0.02 K/uL Nucleated Red Blood Cells % 1.1 % Assessment and Plan 77 y/o F admitted on April 08, 2018 because of neutropenic fever and pain and inflammation of the RLE. Hx AF, PE, DM II, asthma, HTN, HPL, anxiety, GERD, Metastatic lung CA diagnosed 2014. - Right leg cellulitis, neutropenia due to chemotherapy, neutropenic fever further improvement in cellulitis today, neutrophils still low at 0.58 will give Neupogen today, consult Dr. Ruiz continue Cefepime and Vancomycin for now, taper to PO in 1-2 days will need 14 days antibiotics total blood cultures negative thus far transfer to medical floor - Worsening anemia, due to chemotherapy Hb trending up slightly from 7.3 to 7.6, no evidence of bleeding, heme occult was negative likely from chemotherapy 1-2 weeks ago no h/o GI bleeding or ulcers to her knowledge continue Xarelto for now - Afib with RVR HR controlled in the 's, examines with normal rhythm continue Cardizem 240mg PO daily and Toprol 25mg daily Xarelto transfer to medical floor Hypokalemia, hypomagnesemia, follow-up and replace Minimal elevated trop, has been trends down, no clinical evidence of ACS. Mild hypoglycemia with DM II , continue insulin sliding scale no further hypoglycemic episodes Asthma - currently tapering steroids - continue prescribed inhalers Protein malnutrition - severe - supplements provided Poorly differentiated Adenocarcinoma IBETH. Diagnosed 2014. Initially treated with Carboplatinum and Taxol. Cancer metastatic to bone, liver, spleen. recently evaluated for radiation to a pelvic lesion most recent chemotherapy was 1-2 weeks ago per patient consult Dr. Ruiz due to neutropenic fevers Full code - Xarelto, for DVT prophylaxis Continued [facility] stay due to: multiple IV medications needed Discharge planning: home
[2018-04-11 15:37] LABS: HEMOGLOBIN 7.7 g/dL (12.0-16.0)
[2018-04-11] MEDS: MONTELUKAST SOD 10 MG TAB PO SCH (19:59)
[2018-04-11] MEDS: CETIRIZINE HCL 10 MG TAB PO SCH (20:00)
[2018-04-11] MEDS: RIVAROXABAN 20 MG TAB PO SCH (20:00)
[2018-04-11] MEDS ORDERED: KETOROLAC TROMETHAMINE 15 MG/ML VIAL IV. STA (21:27)
[2018-04-12 04:05] VITALS: BP 142/84; PULSE 92; TEMP 36.4; O2SAT 98
[2018-04-12 07:10] VITALS: BP 149/90; PULSE 99; TEMP 36.3; O2SAT 99
[2018-04-12] MEDS ORDERED: VANCOMYCIN TROUGH ONE (07:30)
[2018-04-12] MEDS: DILTIAZEM HCL 120 MG EXT REL CAP PO SCH (07:37)
[2018-04-12] MEDS: METOPROLOL SUCC 25MG EXT REL TAB PO SCH (07:37)
[2018-04-12] MEDS: PANTOprazole SOD 40 MG TAB PO SCH (07:38)
[2018-04-12] MEDS: LACTOBACILLUS ACIDOPHILUS (FLORANEX) TAB PO SCH ×2 (07:38→11:55)
[2018-04-12] MEDS: BUDESONIDE 90 MCG INH INH SCH (07:39)
[2018-04-12 08:12] LABS: CREATININE 0.59 mg/dl (0.60-1.20)
--- NOTE | 2018-04-12 09:46 | ONCOLOGY CONSULTATION ---
DATE OF CONSULTATION: 04/12/2018 REASON FOR CONSULTATION: A 77-year-old female patient with metastatic adenocarcinoma, currently receiving salvage chemotherapy. HISTORY OF PRESENT ILLNESS: Karlene is a pleasant 77-year-old female patient well known to the [facility] recently diagnosed with metastatic lung cancer and recently began salvage chemotherapy. She was admitted on 04/08/2018 after developing erythematous, painful right lower extremity. Her last chemotherapy was administered about 10 days ago. She was actually scheduled to receive treatment this past 04/10/2018 and was in-house and unfortunately missed her treatment. Apparently on admission, she was tachycardic and noted to have significant electrolyte dysfunction as well as neutropenia. She is presently on the medical service receiving broad spectrum antimicrobials. Karlene seems to be doing much better and was sitting in bed, enjoying her breakfast. Blood and urine cultures were obtained and as of today no growth. The area of erythema extends close to the bottom part of the right knee from the ankle. PAST MEDICAL HISTORY: 1. Again, metastatic poorly differentiated adenocarcinoma of the lung. 2. Pancytopenia. 3. Atrial fibrillation. 4. Hypertension. 5. Hyperlipidemia. 6. Osteoporosis. 7. Asthma. 8. GERD. 9. Type 2 diabetes mellitus. 10. Anxiety disorder. HOME MEDICATIONS: Pulmicort inhaler 2 puffs b.i.d., Zyrtec 10 mg p.o. q.p.m., diltiazem 240 mg p.o. daily. She is on 2 liters of nasal cannula oxygen. Toprol-XL 25 mg p.o. daily, Osteo Bi-Flex she takes 1 tablet twice daily, Singulair 10 mg p.o. daily, multivitamin 1 p.o. daily, Protonix 40 mg p.o. q.a.m., potassium chloride 10 mEq p.o. daily, prednisone dose unknown 1 tablet b.i.d., Mucinex D 1 tablet p.o. b.i.d., and Xarelto 20 mg p.o. daily. ALLERGIES: AMOXICILLIN, DOXYCYCLINE, ALBUTEROL, BUDESONIDE, FORMOTEROL IPRATROPIUM, SULFA ANTIBIOTICS, TIOTROPIUM, ADHESIVES, STATINS, AND CLARITHROMYCIN. FAMILY HISTORY: Noncontributory. SOCIAL HISTORY: The patient is , lives with her . Nonsmoker, nondrinker. REVIEW OF SYSTEMS: Most notably for low-grade fever and erythematous right lower extremity. Appetite is vigorous. Denies weight loss. SKIN: As per HPI. HEENT: Denies headaches, lightheadedness, or dizziness. No acute visual or hearing deficits. No sinus symptoms, sore throat, or dysphagia. LYMPH: No history of lymphoproliferative disease. CARDIAC: Positive for tachycardia on admission. No history of coronary artery disease. No current angina or palpitations. PULMONARY: Positive for metastatic lung cancer, oxygen-dependent COPD. She is not short of breath or dyspneic at present. Denies any cough or hemoptysis at this time. GASTROINTESTINAL: Negative for abdominal pain, nausea, vomiting, diarrhea, or constipation, hematochezia or melena stools. GENITOURINARY: No hematuria, dysuria, or urinary incontinence. PSYCHIATRIC: Positive for anxiety. MUSCULOSKELETAL: No current muscle weakness or arthralgias. ENDOCRINE: Negative for diabetes or thyroid disease. NEUROLOGIC: Negative for seizure, stroke, or migraine headache. HEMATOLOGIC: Positive for cytopenias attributable to current chemotherapy. PHYSICAL EXAMINATION: GENERAL: Karlene is a pleasant 77-year-old female, sitting at bedside, enjoying her breakfast, in no acute distress. VITAL SIGNS: Temperature 36.3, pulse 99, respiratory rate 20, blood pressure 149/90. SKIN: Again large area of erythema extends from the patient's ankle up to the bottom of her knee, the right lower extremity. Otherwise, no petechia or ecchymosis noted. HEENT: Atraumatic, normocephalic. EYES: PERRLA, EOMI. Nares are patent without rhinorrhea or discharge. Throat clear. Tongue midline. Mucous membranes are moist. NECK: Supple. HEART: Regular rate and rhythm. LUNGS: Clear to auscultation bilaterally. ABDOMEN: Soft, nontender, nondistended, without palpable hepatosplenomegaly. EXTREMITIES: Lymphedema of the lower extremities, which is chronic for Karlene. NEUROLOGICALLY: She is awake, alert, and oriented x3. Cranial nerves are intact. LABORATORY DATA: Today's peripheral blood counts are pending. Counts from yesterday are as follows: WBC count 1670, hemoglobin 7.6, platelet count 333,000. Creatinine 0.59. IMPRESSION: 1. Metastatic non-small cell lung cancer. 2. Right lower extremity cellulitis. 3. Neutropenic fever. 4. Electrolyte dysfunction. 5. Anemia. PLAN: I had the pleasure of visiting with Karlene this morning at bedside. She seems to be doing much better since she presented 4 days ago with an erythematous, painful right lower extremity. The patient received her last course of carboplatin, paclitaxel and Avastin about 10 days ago. She is profoundly neutropenic, which I believe is multifactorial with underlying infection as well as chemotherapeutic effect. However, weekly Carbo-Taxol generally does not readily cause profound neutropenia. It would be reasonable to provide Neupogen for her until her ANC is greater than 800. I would also consider transfusion 2 units packed RBCs to improve her performance status a bit. We will plan on holding further chemotherapy until she is medically stable. I believe Karlene is scheduled to begin her next cycle in about 10 days, which should afford adequate time for recovery. I agree with medical management, otherwise including replacement of electrolytes. If you have any questions or concerns, feel free to contact me at any time. MTDD
--- NOTE | 2018-04-12 09:51 | Pharmacy Progress Note ---
Pharmacy Abx Dose Short Note Date of Service Apr 12, 2018. Assessment & Plan Assessment 77 year old female receiving Vancomycin 1250mg q14h IV for treatment of SSTI/ cellulitis and febrile neutropenia Day # 5 of antimicrobial therapy. Item Value Date Time Vancomycin Level Trough 17.1 mcg/ml 04/12/18 0728 Plan Vancomycin * Trough level of 17.1 mcg/mL is therapeutic for treating neutropenic fever * All cultures negative to date, afebrile x4 days * Since renal function is stable and fever/hematology labs resolving, will take less aggressive approach and focus on cellulitis * Change to 1250 mg IV every 16 hours * Goal trough level for SSTIs : 10 to 15 mcg/mL * Trough level ordered for: 04/14/18 before 1000 dose Pharmacy will continue to follow and will adjust dose/frequency as necessary. Thank you.
[2018-04-12 09:52] LABS: HEMATOCRIT 28.3 % (37-47); HEMOGLOBIN 8.5 g/dL (12.0-16.0); MEAN CELL VOLUME 81.8 fL (80-100); MEAN CORPUSCULAR HEMOGLOBIN 24.6 pg (25-34); MEAN PLATELET VOLUME 10.3 fL (7.4-10.4); NUCLEATED RED BLOOD CELL ABS 0.25 K/uL (0-0); PLATELET COUNT 450 K/uL (130-400); RED CELL DISTRIBUTION WIDTH SD 50.7 fL (36.4-46.3); WHITE BLOOD COUNT 5.07 K/uL (4.8-10.8)
[2018-04-12] MEDS ORDERED: VANCOMYCIN IV 1,250 MG in SODIUM CHLORIDE 0.9% 250ML 250 ML IV SCH (10:00)
[2018-04-12] MEDS: BOOST GLUCOSE CONTROL VANILLA PO SCH ×2 (10:17→11:55)
[2018-04-12 10:19] LABS: BASO ABS # 0.15 K/uL (0-0.2); IG# 0.07 K/uL (0.00-0.02); LYMPH % 12.2 %; LYMPH ABS # 0.62 K/uL (1.2-3.4); MONO % 14.6 %; MONO ABS # 0.74 K/uL (0.11-0.59); NEUT % 68.8 %; NEUT ABS # 3.49 K/uL (1.4-6.5)
[2018-04-12] MEDS ORDERED: FUROSEMIDE INJ 40 MG in SYRINGE 0 ML IV ONE (11:15)
[2018-04-12 11:25] VITALS: BP 123/80; PULSE 105; TEMP 36.4; O2SAT 99
--- NOTE | 2018-04-12 11:33 | DIAGNOSTIC IMAGING REPORT ---
CHEST ONE VIEW PORTABLE CLINICAL HISTORY: dyspnea COMPARISON STUDY: 04/08/2018 FINDINGS: There is a right-sided A-Port catheter present. The heart remains enlarged. There is a stable 4 cm left superior hilar opacity. There is no acute lobar consolidation. There are no pleural effusions.[ IMPRESSION: Stable 4 cm left superior hilar opacity. Electronically signed by: José Manuel Rolon M.D. 04/12/2018 11:32 AM Dictated Date/Time: 04/12/2018 11:31 AM
[2018-04-12 14:00] VITALS: BP 123/80; PULSE 105; TEMP 36.4; O2SAT 99
[2018-04-12] MEDS ORDERED: CLC150 PO ×2 (14:07→17:24)
[2018-04-12] MEDS ORDERED: LSX20 PO (14:07)
--- NOTE | 2018-04-12 14:14 | Discharge Instructions ---
Discharge Instructions Date of Service Apr 12, 2018. Admission Reason for Admission: Cellulitis Of Right Leg, Rapid Atrial Fibrillation Discharge Discharge Diagnosis / Problem: Cellulitis right leg, neutropenia, anemia, atrial fibrillation Discharge Goals Goal(s): Improve function, Improve disease control Activity Recommendations Activity Limitations: resume your previous activity . Instructions / Follow-Up Instructions / Follow-Up Medications: - CLINDAMYCIN: 300mg (2 capsules) three times a day starting tomorrow morning, take for 6 more days - LASIX: listed as new medication at 20mg daily, however, this is because it did not make our original home medication list, please resume taking whatever dose you were taking at home Right leg cellulitis: markedly improved with antibiotics but also with the resolution of neutropenia, body now able to fight infections in the hospital you were given Vancomycin IV and Cefepime IV will change to Clindamycin by mouth for 6 more days, start tomorrow morning follow up with Dr. Abad early next week for hospital follow up Neutropenia, anemia caused by chemotherapy neutropenia resolved, WBC normal and neutrophil count normal after a dose of Neupogen numbers should only continue to improve Hemoglobin up to 8.5 and trending upward the past three days Lung cancer: please follow up as previously scheduled for next chemotherapy treatment with Dr. Ruiz Chronic hypoxia: you are 99% on 2 liters nasal canula, continue to use as directed at home Atrial fibrillation: heart rates have been in 80-100's while admitted, continue Diltiazem 240mg and Toprol 25mg if HR is elevated in the office or at home, consistently in 100's, then could consider increasing Toprol to 50mg, should discuss with PCP FOLLOW UP - Dr. Abad in one week, call for appointment - Dr. Ruiz for chemotherapy as previously scheduled Current Hospital Diet Patient's current hospital diet: Regular Diet Discharge Diet Recommended Diet: Regular Diet Pending Studies Studies pending at discharge: no Medical Emergencies . Who to Call and When: Medical Emergencies: If at any time you feel your situation is an emergency, please call 911 immediately. . Non-Emergent Contact Non-Emergency issues call your: Primary Care Provider, Oncologist Call Non-Emergent contact if: you have a fever, you have any medication questions . . "Provider Documentation" section prepared by Connor Hummel. . [place] Drug Monitoring Program Search Results: no issues identified
[2018-04-12 14:58] VITALS: BP 118/83; PULSE 97; TEMP 36.4; O2SAT 97
--- NOTE | 2018-04-14 08:25 | Discharge Summary ---
Discharge Summary Date of Service Apr 12, 2018. Discharge Summary Admission Date: Apr 08, 2018 at 17:02 Discharge Date: Apr 12, 2018 Discharge Disposition: Home Principal Diagnosis: Right leg cellulitis Problems/Secondary Diagnoses: Neutropenia due to chemotherapy Anemia due to chemotherapy Atrial fibrillation with RVR Chronic hypoxic respiratory failure Acute on chronic diastolic heart failure Immunizations: Have You Had Influenza Vaccine: Yes History of Tetanus Vaccine?: No History of Pneumococcal: Yes History of Hepatitis B Vaccine: No Procedures: none Consultations: Oncology Medication Reconciliation New Medications: Clindamycin HCl (Clindamycin HCl) 150 Mg Cap 300 MG PO TID for 6 Days, #36 CAP 0 Refills Furosemide (Furosemide) 20 Mg Tab 20 MG PO DAILY for 30 Days, #30 TAB 3 Refills Continued Medications: Alprazolam (Xanax) 0.5 Mg Tab 1 TAB PO DAILY PRN for Anxiety, TAB Budesonide (Inhalation) (Pulmicort Flexhaler) 180 Mcg/Act Inh 2 PUFFS INH BID for 30 Days, #1 INHALER 3 Refills Cetirizine Hcl (Zyrtec) 10 Mg Tab 10 MG PO QPM, TAB Diltiazem Hcl Ext Rel (Tiazac) 240 Mg Capcr 240 MG PO DAILY, CAP Home O2 Therapy (Oxygen) Gas 2 LITERS NA DAILY for 30 Days Ipratropium-Albuterol (Duoneb) 3 Ml Nebu 1 TREATMENT INH Q4H PRN for PRN, INHA Meloxicam (Mobic) 7.5 Mg Tab 15 MG PO DAILY PRN for PRN, TAB Metoprolol Succ (Toprol Xl) (Toprol-Xl) 25 Mg Tabcr 25 MG PO DAILY, #30 TAB Misc Natural Products (Osteo Bi-Flex Joint Shiel) 1 Tab Tab BID Montelukast Sodium (Singulair) 10 Mg Tab 10 MG PO QPM, TAB Multiple Vitamin (Multivitamin) 1 Tab Tab 1 TAB PO QPM, TAB Ondansetron Hcl (Zofran) 8 Mg Tab 8 MG PO TID PRN for Nausea, TAB Pantoprazole (Protonix) 40 Mg Tab 40 MG PO QAM, #30 TAB Potassium Chloride (Micro-K Ext Rel) 10 Meq Capcr 10 MEQ PO DAILY, CAP Prochlorperazine Maleate (Compazine) 10 Mg Tab 10 MG PO Q4H PRN for nausea, TAB NAUSEA/VOMITING Pseudoephedrine-Guaifenesin (Mucinex D) 1 Tab Tab 1 TAB PO BID for 10 Days, #20 TAB Rivaroxaban (Xarelto) 20 Mg Tab 20 MG PO DAILY, TAB Discontinued Medications: Prednisone (Prednisone) 20 Mg Tab 1 TAB PO BID for 5 Days, #10 TAB Only taking this dose x 5 days; Discharge Exam Patient felt a little more short of breath the morning of discharge. Noticed that when she stood up in the bathroom and tried to walk she was winded. Asked her if she takes Lasix at home, she said that she takes it daily, however she does not know dose. She has not been taking Lasix while in hospital. Gave her a dose of Lasix 40mg IV and she diuresed a lot, breathing improved dramatically. She felt well enough to go home. Reviewed labs, neutropenia resolved completely after Neupogen the day prior, Hb up to 8.5, platelets normal. Discussed plan, will use Clindamycin to treat cellulitis. Right leg erythema and pain completely resolved. She will follow up for next chemotherapy treatment in [address] Ruiz. Review of Systems: Constitutional: No fever, No chills, No sweats, No weight loss, No weakness , No fatigue, No problem reported Eyes: No worsening of vision, No eye pain, No redness, No discharge, No diplopia, No problem reported ENT: No hearing loss, No unusual epistaxis, No nasal symptoms, No sore throat, No tinnitus, No dental problems, No trouble swallowing, No problem reported Respiratory: + dyspnea on exertion (improved a lot after Lasix), No cough, No sputum, No wheezing, No shortness of breath, No dyspnea at rest, No hemoptysis, No problem reported Cardiovascular: + edema (chronic lymphedema), No chest pain, No orthopnea, No PND, No claudication, No palpitations, No problem reported Abdomen: No pain, No nausea, No vomiting, No diarrhea, No constipation, No GI bleeding, No problem reported Musculoskeletal: No joint pain, No muscle pain, No swelling, No calf pain, No problem reported Genitourinary - Female: No dysuria, No urinary frequency, No urinary urgency , No urinary incontinence, No urinary retention, No hematuria Neurologic: + weakness, No memory loss, No paralysis, No numbness/tingling, No vertigo, No balance problems, No problem reported Psychiatric: No depression symptoms, No anhedonism, No anxiety, No insomnia , No substance abuse, No problem reported Endocrine: No fatigue, No excessive thirst, No excessive urination, No problem reported Hematologic / Lymphatic: No abnormal bleeding/bruising, No clotting problems , No swollen lymph nodes, No night sweats, No problem reported Integumentary: No rash, No itch, No new/changing skin lesions, No color change, No bleeding, No problem reported Physical Exam: General Appearance: WD/WN, no apparent distress Eyes: normal inspection, EOMI, sclerae normal ENT: normal ENT inspection, hearing grossly normal, pharynx normal Neck: supple, no adenopathy, no JVD, trachea midline Respiratory/Chest: chest non-tender, no respiratory distress, no accessory muscle use, + decreased breath sounds, + crackles (trace in bases) Cardiovascular: no gallop, no JVD, no murmur, normal peripheral pulses, + tachycardia (occasional, mostly in 80-90s), + irregularly irregular Abdomen / GI: normal bowel sounds, non tender, soft, no organomegaly Extremities: normal inspection, no calf tenderness, normal capillary refill , normal range of motion, pelvis stable, + pedal edema (lymphedema, chronic) Neurologic/Psychiatric: 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 Hx AF, PE, DM II, asthma, HTN, HPL, anxiety, GERD, Metastatic lung CA diagnosed 2014. - Right leg cellulitis, neutropenia due to chemotherapy, neutropenic fever erythema and pain in right leg completely gone, looks the same as left leg neutropenia resolved, WBC 5k, neutrophils 3000, received Neupogen on 04/11 treated with Cefepime and Vancomycin initially, tapered to just Vancomycin will d/c on Clindamycin 300mg TID x 6 more days blood cultures negative - Worsening anemia, due to chemotherapy Hb trended up to 8.5, no evidence of bleeding, heme occult was negative likely from chemotherapy 1-2 weeks ago no h/o GI bleeding or ulcers to her knowledge continue Xarelto for now - Afib with RVR HR controlled in the 80's-90's continue Cardizem 240mg PO daily and Toprol 25mg daily Xarelto if HR is elevated in office then could increase Toprol to 50mg Acute on chronic diastolic heart failure occurred on morning of discharge, more dyspnea on exertion diuresed a lot with Lasix 40mg IV x 1 per patient, she takes Lasix at home, did not know dose instructed her to continue Lasix on discharge Hypokalemia, hypomagnesemia -- resolved Minimal elevated trop, has been trends down, no clinical evidence of ACS. Mild hypoglycemia with DM II , continue insulin sliding scale no further hypoglycemic episodes Asthma - currently tapering steroids - continue prescribed inhalers Protein malnutrition - severe - supplements provided Poorly differentiated Adenocarcinoma IBETH. Diagnosed 2014. Initially treated with Carboplatinum and Taxol. Cancer metastatic to bone, liver, spleen. recently evaluated for radiation to a pelvic lesion most recent chemotherapy was 1-2 weeks ago per patient per Dr. Ruiz, next chemo due in 10 days Full code - Xarelto, for DVT prophylaxis Total Time Spent: Greater than 30 minutes This includes examination of the patient, discharge planning, medication reconciliation, and communication with other providers. Discharge Instructions Please refer to the electronic Patient Visit Report (Discharge Instructions) for additional information. Follow-Up Dr. Ruiz in [address] Abad in one week Additional Copies To Karlos Ruiz D.O.; Sury Abad M.D.
[2018-04-14] MEDS ORDERED: VANCOMYCIN TROUGH ONE (09:30)
[2018-04-14] MEDS ORDERED: PRED-301 PO ×2 (17:15→17:41)
[2018-04-14] MEDS ORDERED: ALPR-411 PO (17:41)
[2018-04-14] MEDS ORDERED: CETI10TA84 PO (17:41)
[2018-04-14] MEDS ORDERED: FURO-85 PO (17:41)
[2018-04-14] MEDS ORDERED: IPRA-64 INH (17:41)
[2018-04-14] MEDS ORDERED: MONT1TAB3 PO (17:41)
[2018-04-14] MEDS ORDERED: METO25TA4 PO (17:41)
[2018-04-14] MEDS ORDERED: PANT40TA PO (17:41)
[2018-04-14] MEDS ORDERED: CRDCD/180 PO (17:41)
[2018-04-14] MEDS ORDERED: DEXA1TAB16 PO (17:41)
[2018-04-14] MEDS ORDERED: BUDE180I INH (17:41)
[2018-04-14] MEDS ORDERED: MELO-83 PO (17:41)
[2018-04-14] MEDS ORDERED: PROC10TA PO (17:44)
[2018-04-14] MEDS ORDERED: RIVA1TAB4 PO (17:44)
[2018-04-14] MEDS ORDERED: MULT-506 PO (17:44)
== END 2018-04-12 17:49 | disposition home or self-care (01) | DRG 602 ==
LOC: C.EDB 12:27 → C.2T 17:02 → ENRESERV 17:39 → C.4E 04-11 15:33
PROVIDERS: ADMIT Internal Medicine; ATTEND Internal Medicine
DX: L03.115 Cellulitis of right lower limb (principal); E43 Unspecified severe protein-calorie malnutrition; I50.33 Acute on chronic diastolic (congestive) heart failure; C34.12 Malignant neoplasm of upper lobe, left bronchus or lung; C79.51 Secondary malignant neoplasm of bone; C78.7 Secondary malignant neoplasm of liver and intrahepatic bile duct; C78.89 Secondary malignant neoplasm of other digestive organs; J96.11 Chronic respiratory failure with hypoxia; D70.1 Agranulocytosis secondary to cancer chemotherapy; D64.81 Anemia due to antineoplastic chemotherapy; I48.91 Unspecified atrial fibrillation; Z91.14 Patient's other noncompliance with medication regimen; E87.6 Hypokalemia; E83.42 Hypomagnesemia; D50.9 Iron deficiency anemia, unspecified; R79.89 Other specified abnormal findings of blood chemistry; E11.649 Type 2 diabetes mellitus with hypoglycemia without coma; J45.909 Unspecified asthma, uncomplicated; I11.0 Hypertensive heart disease with heart failure; K21.9 Gastro-esophageal reflux disease without esophagitis; Z86.711 Personal history of pulmonary embolism; Z87.891 Personal history of nicotine dependence; Z99.81 Dependence on supplemental oxygen; Z79.01 Long term (current) use of anticoagulants; Z79.51 Long term (current) use of inhaled steroids; Z79.52 Long term (current) use of systemic steroids; Z79.899 Other long term (current) drug therapy; Z88.0 Allergy status to penicillin; Z88.1 Allergy status to other antibiotic agents; Z88.2 Allergy status to sulfonamides; Z88.8 Allergy status to other drugs, medicaments and biological substances; Z91.048 Other nonmedicinal substance allergy status

== ENCOUNTER 2018-08-06 10:38 | Inpatient (IN) ==
[2018-08-06 11:42] LABS: Basophils # (auto) 0.01 K/uL (0-0.2); Basophils % (auto) 0.5 %; Hemoglobin 9.5 g/dL (12.0-16.0); Immature Granulocytes # (auto) 0.01 K/uL (0.00-0.02); Immature Granulocytes % (auto) 0.5 %; Lymphocytes # (auto) 0.65 K/uL (1.2-3.4); Lymphocytes % (auto) 30.2 %; Mean Corpuscular Hgb Conc 31.7 g/dL (32-36); Mean Corpuscular Volume 94.3 fL (80-100); Mean Platelet Volume 10.9 fL (7.4-10.4); Monocytes # (auto) 0.12 K/uL (0.11-0.59); Monocytes % (auto) 5.6 %; Neutrophils # (auto) 1.36 K/uL (1.4-6.5); Neutrophils % (auto) 63.2 %; Platelet Count 146 K/uL (130-400); RDW Standard Deviation 60.1 fL (36.4-46.3); Red Blood Count 3.18 M/uL (4.2-5.4); White Blood Count 2.15 K/uL (4.8-10.8)
[2018-08-06 11:50] LABS: INR 1.2 (0.9-1.1); Partial Thromboplastin Ratio 1.4; Partial Thromboplastin Time 35.8 Seconds (21.0-31.0)
[2018-08-06 12:00] LABS: Alanine Aminotransferase 25 U/L (12-78); Albumin Level 2.7 gm/dl (3.4-5.0); Aspartate Aminotransferase 23 U/L (15-37); BUN Creatinine Ratio 27.3 (10-20); Blood Urea Nitrogen 13 mg/dl (7-18); Calcium 8.5 mg/dl (8.5-10.1); Carbon Dioxide 29 mmol/L (21-32); Chloride 101 mmol/L (98-107); Est GFR (African American) 107.4; Est GFR (Non-African American) 92.6; Glucose 108 mg/dl (70-99); Magnesium 1.1 mg/dl (1.8-2.4); Potassium 2.9 mmol/L (3.5-5.1); Sodium 140 mmol/L (136-145)
[2018-08-06 12:10] LABS: Albumin Globulin Ratio 0.9 (0.9-2); Alkaline Phosphatase 52 U/L (45-117); Globulin 2.9 gm/dl (2.5-4.0); Total Protein 5.6 gm/dl (6.4-8.2); Troponin I 0.506 ng/ml (0-0.045)
[2018-08-06 12:23] LABS: Influenza A virus by PCR Neg for Influ A (Neg); Influenza B virus by PCR Neg for Influ B (Neg)
[2018-08-06 15:33] LABS: Appearance Urine Clear (Clear); Bacteria Urine Automated Negative (Negative); Bilirubin Urine Negative (Negative); Color Urine Yellow; Glucose Urine UA Negative (Negative); Ketones Urine 2+ (Negative); Leukocyte Esterase Urine Trace (Negative); Nitrite Urine Negative (Negative); Protein Urine Negative (Negative); Specific Gravity Urine > 1.045 (1.000-1.030); Urobilinogen Urine Negative (Negative); WBC Urine Automated >30 /hpf (0-5); pH Urine 5.5 (4.5-7.5)
[2018-08-07 05:55] LABS: Hematocrit (blood only) 25.9 % (37-47); Hemoglobin 8.3 g/dL (12.0-16.0); Mean Corpuscular Volume 94.2 fL (80-100); Mean Platelet Volume 10.4 fL (7.4-10.4); Platelet Count 122 K/uL (130-400); RDW Coefficient of Variation 18.4 % (11.5-14.5); RDW Standard Deviation 61.3 fL (36.4-46.3); Red Blood Count 2.75 M/uL (4.2-5.4)
[2018-08-07 06:33] LABS: BUN Creatinine Ratio 29.3 (10-20); Calcium 8.1 mg/dl (8.5-10.1); Creatinine Clr Calc Pharmacy 97.8 ml/min; Est GFR (Non-African American) 98.4; Magnesium 1.7 mg/dl (1.8-2.4); Potassium 3.7 mmol/L (3.5-5.1)
[2018-08-07 06:40] LABS: Troponin I 1.55 ng/ml (0-0.045)
[2018-08-08 08:19] LABS: Hematocrit (blood only) 25.5 % (37-47); Hemoglobin 8.1 g/dL (12.0-16.0); Mean Corpuscular Hgb Conc 31.8 g/dL (32-36); Mean Corpuscular Volume 94.4 fL (80-100); Mean Platelet Volume 10.6 fL (7.4-10.4); Platelet Count 160 K/uL (130-400); RDW Coefficient of Variation 18.4 % (11.5-14.5); RDW Standard Deviation 60.1 fL (36.4-46.3); White Blood Count 2.02 K/uL (4.8-10.8)
[2018-08-08 08:53] LABS: BUN Creatinine Ratio 20.7 (10-20); Calcium 8.2 mg/dl (8.5-10.1); Est GFR (African American) 109.7; Est GFR (Non-African American) 94.6; Magnesium 1.9 mg/dl (1.8-2.4); Potassium 3.1 mmol/L (3.5-5.1)
[2018-08-09 05:46] LABS: Hemoglobin 7.9 g/dL (12.0-16.0); Mean Corpuscular Hgb Conc 31.6 g/dL (32-36); Mean Corpuscular Volume 95.4 fL (80-100); Mean Platelet Volume 10.5 fL (7.4-10.4); Platelet Count 193 K/uL (130-400); RDW Coefficient of Variation 18.6 % (11.5-14.5); RDW Standard Deviation 61.5 fL (36.4-46.3); Red Blood Count 2.62 M/uL (4.2-5.4); White Blood Count 2.21 K/uL (4.8-10.8)
[2018-08-09 05:52] LABS: INR 1.2 (0.9-1.1); Prothrombin Time 11.7 Seconds (9.0-12.0)
[2018-08-09 06:33] LABS: BUN Creatinine Ratio 16.7 (10-20); Calcium 8.1 mg/dl (8.5-10.1); Creatinine Clr Calc Pharmacy 79.2 ml/min; Est GFR (African American) 105.9; Est GFR (Non-African American) 91.4; Magnesium 1.7 mg/dl (1.8-2.4); Potassium 4.1 mmol/L (3.5-5.1)
[2018-08-10 06:01] LABS: Basophils # (auto) 0.02 K/uL (0-0.2); Basophils % (auto) 0.8 %; Eosinophils # (auto) 0.01 K/uL (0-0.5); Eosinophils % (auto) 0.4 %; Hematocrit (blood only) 30.3 % (37-47); Hemoglobin 9.7 g/dL (12.0-16.0); Immature Granulocytes # (auto) 0.05 K/uL (0.00-0.02); Immature Granulocytes % (auto) 1.9 %; Lymphocytes # (auto) 0.56 K/uL (1.2-3.4); Lymphocytes % (auto) 21.4 %; Mean Corpuscular Volume 93.5 fL (80-100); Monocytes % (auto) 26.7 %; Neutrophils # (auto) 1.28 K/uL (1.4-6.5); Neutrophils % (auto) 48.8 %; Nucleated RBC # (auto) 0.02 K/uL (0-0); Nucleated RBC % (auto) 0.8 %; Platelet Count 206 K/uL (130-400); RDW Coefficient of Variation 18.3 % (11.5-14.5); RDW Standard Deviation 58.9 fL (36.4-46.3); Red Blood Count 3.24 M/uL (4.2-5.4); White Blood Count 2.62 K/uL (4.8-10.8)
[2018-08-10 06:31] LABS: BUN Creatinine Ratio 12.5 (10-20); Calcium 8.2 mg/dl (8.5-10.1); Creatinine Clr Calc Pharmacy 82.6 ml/min; Est GFR (African American) 107.4; Est GFR (Non-African American) 92.6; Magnesium 1.8 mg/dl (1.8-2.4); Potassium 3.9 mmol/L (3.5-5.1)
== END 2018-08-10 13:00 | disposition home health service (06) ==
LOC: ED 10:38 → SUATTDRO 15:25 → 2W 15:25